=== PATIENT | female | born 1985 | race Caucasian/White ===

== ENCOUNTER 2020-07-06 07:46 | Outpatient (REF) | payer MEDICAID, SELFPAY ==
--- NOTE | 2020-07-06 07:49 | US_ITS ---
EXAMINATION: US ABDOMEN COMPLETE CLINICAL INFORMATION: Abdominal pain. COMPARISON: Ultrasound abdomen 02/14/2018 and ultrasound limited abdomen 09/16/2015. CT abdomen pelvis 09/12/2015. TECHNIQUE: Real-time imaging of the abdominal viscera. FINDINGS: PANCREAS: The head and body the pancreas are normal appearing. Tail obscured by gas. ABDOMINAL AORTA: The proximal, mid, and distal segments are normal in caliber. INFERIOR VENA CAVA: Visualized portions are normal. LIVER: Liver echotexture is increased. The liver is normal in size. The liver contour is normal. No focal hepatic lesion. There is no intrahepatic biliary duct dilatation seen. GALLBLADDER: Surgically absent. COMMON BILE DUCT: Normal in caliber measuring 0.9 cm in diameter. RIGHT KIDNEY: Normal. No hydronephrosis. No renal calculi or focal parenchymal lesions. The kidney measures 10.9 cm in maximum dimension. LEFT KIDNEY: Normal. No hydronephrosis. No renal calculi or focal parenchymal lesions. The kidney measures 10.4 cm in maximum dimension. SPLEEN: Normal. The spleen measures 10.9 cm in maximum dimension. FREE FLUID: None. US/US abdomen complete IMPRESSION: Echogenic liver probably representing fatty infiltration. Postcholecystectomy. Limited visualization of the tail the pancreas.
== END 2020-07-06 07:47 | disposition home or self-care (01) ==
LOC: HO.US 07:46
PROVIDERS: Visit Provider Nurse Practitioner Primary Care
DX: R10.12 Left upper quadrant pain (principal)
CPT/HCPCS: 76700

== ENCOUNTER 2020-07-26 08:44 | Outpatient (REF) | payer MEDICAID, SELFPAY ==
--- NOTE | ~2020-07-26 | CT_ITS ---
EXAMINATION: CT ABDOMEN AND PELVIS WITH CONTRAST CLINICAL INFORMATION: Left-sided abdominal pain COMPARISON: Previous CT of the abdomen and pelvis September 2015 and abdominal ultrasound 07/06/2020 TECHNIQUE: Multidetector volumetric images were obtained from the superior aspect of the liver through the pubic symphysis following administration 85 mL of Omnipaque 350 intravenous contrast. Sagittal and coronal reformatted images were obtained on the technologist's workstation. Oral contrast: Yes This CT examination was performed using dose optimization techniques as appropriate, variously including the following: *Automated exposure control *Adjustment of mA and/or kV according to patient size (this includes techniques or standardized protocols for targeted exams where dose is matched to indication/reason for exam; i.e. extremities or head) *Use of iterative reconstruction technique DLP: 838 mGy-cm FINDINGS: LUNG BASES: The visualized lung bases are unremarkable. LIVER, GALLBLADDER, AND BILIARY TREE: The liver is low in attenuation suggestive of fatty infiltration. The liver is otherwise unremarkable. The gallbladder has been removed. There is no biliary duct dilatation. PANCREAS: Unremarkable. SPLEEN: Unremarkable. ADRENAL GLANDS: Unremarkable. KIDNEYS AND URETERS: The kidneys are normal in size, shape, and attenuation. No hydronephrosis, hydroureter, or calculi seen. No perinephric stranding. BLADDER: Unremarkable. GASTROINTESTINAL TRACT: The small and large bowel are unremarkable. The appendix is identified. ABDOMINAL WALL: There is an umbilical hernia containing fat. LYMPH NODES: Normal. VASCULAR: Unremarkable. PELVIC VISCERA: Unremarkable. OSSEOUS STRUCTURES: Unremarkable. CT/CT abdomen pelvis w con IMPRESSION: Fatty liver. Umbilical hernia containing fat.
[2020-07-26] MEDS: iohexoL 350 MG/ML 100 ML INFUS..BTL IV (12:33)
[2020-07-26] MEDS: Barium Sulfate Oral (Vanilla) 450 ML ORAL.SUSP 900 ML PO (12:34)
== END 2020-07-26 08:45 | disposition home or self-care (01) ==
LOC: HO.CT 08:44
PROVIDERS: Visit Provider Nurse Practitioner Primary Care
DX: R10.12 Left upper quadrant pain (principal); R10.30 Lower abdominal pain, unspecified
CPT/HCPCS: 74177; Q9967

== ENCOUNTER 2021-01-23 14:17 | Emergency (ER) | payer MEDICAID, SELFPAY ==
--- NOTE | ~2021-01-23 | XR_ITS ---
EXAMINATION: XR CHEST CLINICAL INFORMATION: Chest pain COMPARISON: May 05, 2018 TECHNIQUE: Frontal view of the chest was obtained. FINDINGS: No significant abnormality is noted involving the heart, lungs, mediastinum, bony thorax or soft tissues. XR/XR chest 1V IMPRESSION: No acute disease.
[2021-01-23 14:19] VITALS: BP 156/90; PULSE 68; RESP 16; TEMP 36.7; O2SAT 99; BMI 36.0
--- NOTE | 2021-01-23 14:22 | ECG_ITS ---
Test Reason : CHEST PAIN Blood Pressure : / mmHG Vent. Rate : 072 BPM Atrial Rate : 072 BPM P-R Int : 148 ms QRS Dur : 090 ms QT Int : 380 ms P-R-T Axes : 020 054 036 degrees QTc Int : 416 ms Normal sinus rhythm Normal ECG No previous ECGs available Referred By: Generic ED Physician Electronically Signed By:ALEJO YOST
[2021-01-23 14:49] LABS: MANUAL DIFF FLAG NO
[2021-01-23 14:51] LABS: Basophils Percent Auto 0.2 % (0-2); Eosinophils Absolute Auto 0.1 X10*3/uL (0.0-0.4); Eosinophils Percent Auto 0.5 % (0-4); Hematocrit 39.3 % (37-47); Hemoglobin 12.9 g/dl (12.0-16.0); Imm Gran Abs Auto 0.04 X10*3/uL (0.00-0.03); Imm Gran Pct Auto 0.4 % (0.0-0.4); Lymphocytes Absolute Auto 2.9 X10*3/uL (1.2-4.9); Lymphocytes Percent Auto 31.5 % (20-40); Mean Corpuscular HGB Conc 32.8 g/dl (31.0-35.0); Mean Corpuscular Hemoglobin 30.6 pg (27.0-33.0); Mean Corpuscular Volume 93.1 fL (80-98); Mean Platelet Volume 10.9 fL (9.4-12.3); Monocytes Absolute Auto 0.8 X10*3/uL (0.1-1.2); Monocytes Percent Auto 8.3 % (2-11); Neutrophils Absolute Auto 5.4 X10*3/uL (2.0-8.3); Neutrophils Percent Auto 59.1 % (45-73); Platelet Count 174 X10*3/uL (160-400); Red Blood Count 4.22 X10*6/uL (4.20-5.50); Red Cell Distribution Width 12.5 % (11.0-16.0); White Blood Count 9.1 X10*3/uL (4.8-10.8)
[2021-01-23 15:15] LABS: Anion Gap 12 (12-20); Blood Urea Nitrogen 13 mg/dL (9-16); Calcium 9.8 mg/dL (8.4-10.2); Carbon Dioxide 25 mmol/L (22-29); Chloride 106 mmol/L (96-108); Creatinine Clr Calc Pharmacy 117.5; Estimated Glomerular Filt Rate > 60; Glucose Random 101 mg/dL (60-115); Magnesium 2.2 mg/dL (1.6-2.6); Sodium 139 mmol/L (135-145)
[2021-01-23 15:19] LABS: Troponin-I High Sensitivity < 3.5 ng/L (<3.5-17.0)
== END 2021-01-23 22:42 | disposition left against medical advice (07) ==
PROVIDERS: Emergency Provider Emergency Medicine
DX: R07.9 Chest pain, unspecified (principal); F17.210 Nicotine dependence, cigarettes, uncomplicated; Z71.6 Tobacco abuse counseling
CPT/HCPCS: 36415; 71045; 80048; 83735; 84484; 85025; 93005; 99282; 99283

== ENCOUNTER 2021-02-16 09:08 | Emergency (ER) | payer MEDICAID, SELFPAY ==
--- NOTE | ~2021-02-16 | CT_ITS ---
EXAMINATION: CT HEAD WITHOUT CONTRAST CLINICAL INFORMATION: Headaches. COMPARISON: None TECHNIQUE: Contiguous axial imaging was performed from the skull base to vertex without intravenous administration of contrast. This CT examination was performed using dose optimization techniques as appropriate, variously including the following: *Automated exposure control *Adjustment of mA and/or kV according to patient size (this includes techniques or standardized protocols for targeted exams where dose is matched to indication/reason for exam; i.e. extremities or head) *Use of iterative reconstruction technique DLP: 681 mGy-cm FINDINGS: There is no evidence of acute intracranial hemorrhage or territorial infarction. No abnormal mass effect or midline shift is seen. Arthur to white matter differentiation is well preserved. No extra-axial fluid collections are identified. The ventricles are normal in size. There is no abnormal attenuation within the brain parenchyma. The osseous structures and soft tissues are normal. The mastoid air cells and visualized portions of the paranasal sinuses are well aerated. CT/CT head/brain wo con IMPRESSION: No acute intracranial process seen
[2021-02-16 09:17] VITALS: BP 135/85; PULSE 75; RESP 18; TEMP 37; O2SAT 99; BMI 36.8
--- NOTE | 2021-02-16 09:21 | ED_ITS ---
HPI - Headache General Chief Complaint: Headache Stated Complaint: dizziness, eye pain Time Seen by Provider: 02/16/21 09:20 Source: patient and clinical genetics laboratory chief Mode of arrival: ambulatory Limitations: no limitations History of Present Illness MD elicited complaint: headache Onset (ago): week(s) (2) Onset description: gradually Location: right, left and generalized Severity: moderate Quality & Timing: throbbing Exacerbating factors: none Relieving factors: nothing Context: occurred at rest Associated symptoms: lightheadedness Treatments prior to arrival: none Related Data Previous Rx's Medication Instructions Recorded [id number] 1 tab PO Q6H PRN #20 tab 02/16/21 50 mg-325 mg-40 mg tablet cyclobenzaprine 10 mg tablet 10 mg PO TID PRN #14 tab 02/16/21 Allergies Allergy/AdvReac Type Severity Reaction Status Date / Time No Known Allergies Allergy Verified 01/23/21 14:21 Review of Systems Review of Systems: Constitutional : No Fever, No Chills, No Fatigue ENT/Mouth : No sore throat, No Rhinorrhea Eyes: No Eye Pain, No Swelling, No Redness Cardiovascular : No Chest Pain, No SOB, No Dyspnea on Exertion Respiratory : No Cough, No Sputum Gastrointestinal : No Nausea, No Vomiting, No Diarrhea, No abdominal Pain Genitourinary : No Dysuria, No Urinary Frequency, No Hematuria, Musculoskeletal : No joint pain, No Myalgias, No Joint Swelling Skin : No Skin Lesions, No rash Neuro : No Weakness, No Numbness, pos Dizziness, positive Headache Psych : No Anxiety/Panic, No Depression Heme/Lymph: No Bruising, No Bleeding,No Lymphadenopathy Endocrine : No Polyuria, No Polydipsia All other systems reviewed and are negative [facility] Past Medical History Attestation statement: The following information was validated with the patient. Medical History No known health problems Social History Social History Patient Tobacco Use Status: Never used Tobacco Use of substances other than those prescribed or required for medical reasons: No Advance Directives: No Advance Directives Information Provided: No Patient : No Physical Exam Vital Signs: Vital Signs: Last Vital Signs Temp 98.6 F 02/16/21 09:17 Pulse 75 02/16/21 09:17 Resp 18 02/16/21 09:17 BP 135/85 02/16/21 09:17 Pulse Ox 99 02/16/21 09:17 Body Mass Index 36.8 Appearance: Alert. Oriented X3. No acute distress. Eyes: Pupils equal, round and reactive to light. ENT: Pharynx normal. Neck: Normal inspection. Neck supple. CVS: Normal heart rate and rhythm. Pulses normal. Respiratory: No respiratory distress. Breath sounds normal. Abdomen: Soft and nontender. Skin: Skin warm and dry. Normal skin color. Normal skin turgor. Extremities: No lower extremity edema. No calf ttp Neuro: Oriented X 3. No motor deficit. No sensory deficit. steady gait Course Course Course Narrative: negative workup feels better stable for DC MDM - Headache MDM Narrative Medical decision making narrative: 36 yo female otherwise healthy reports 2 weeks of headache and feeling lightheaded, no CP/SOB she has a normal neuro exam. 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 At this time labs, COVID swab, CT head for mass ordered, PO pain control dispo per results and findings. Lab Data Result diagrams: 02/16/21 09:37 02/16/21 09:37 Labs: Lab Results 02/16/21 02/16/21 02/16/21 Range/Units 09:37 09:37 09:37 WBC 7.6 (4.8-10.8) X10*3/uL RBC 3.99 L (4.20-5.50) X10*6/uL Hgb 12.2 (12.0-16.0) g/dl Hct 35.5 L (37-47) % MCV 89.0 (80-98) fL MCH 30.6 (27.0-33.0) pg MCHC 34.4 (31.0-35.0) g/dl RDW 11.9 (11.0-16.0) % Plt Count 164 (160-400) X10*3/uL MPV 10.6 (9.4-12.3) fL Immature Gran % (Auto) 0.7 H (0.0-0.4) % Neut % (Auto) 65.0 (45-73) % Lymph % (Auto) 27.5 (20-40) % Garza % (Auto) 6.4 (2-11) % Eos % (Auto) 0.3 (0-4) % Baso % (Auto) 0.1 (0-2) % Lymph # (Auto) 2.1 (1.2-4.9) X10*3/uL Garza # (Auto) 0.5 (0.1-1.2) X10*3/uL Eos # (Auto) 0.0 (0.0-0.4) X10*3/uL Baso # (Auto) 0.0 (0.0-0.2) X10*3/uL Abs Immat Gran (auto) 0.05 H (0.00-0.03) X10*3/uL Absolute Neuts (auto) 5.0 (2.0-8.3) X10*3/uL Absolute Nucleated RBC 0.000 (0.0-0.012) X10*3/uL Nucleated RBC % (auto) 0.0 (0.0-0.2) /100WBC Sodium 137 (135-145) mmol/L Potassium 4.0 (3.3-5.1) mmol/L Chloride 105 (96-108) mmol/L Carbon Dioxide 26 (22-29) mmol/L Anion Gap 10 L (12-20) BUN 11 (9-16) mg/dL Creatinine 0.79 (0.5-1.4) mg/dL Estim Creat Clear Calc 124.9 Estimated GFR > 60 Random Glucose 111 (60-115) mg/dL Calcium 9.1 D (8.4-10.2) mg/dL COVID-19 (BALTAZAR) Negative (Negative) COVID-19 Clin Com See Note Discharge Plan Discharge Clinical Impression: Tension headache Patient Disposition: Home, Self-Care Instructions: Tension Headache (ED) Additional Instructions: return to ED for any worsening symptoms or concerns Prescriptions: New cyclobenzaprine 10 mg tablet 10 mg PO TID PRN (Reason: muscle spasm) Qty: 14 RF: 0 [id number]-[id number] 50-325-40 mg tablet 1 tab PO Q6H PRN (Reason: pain) Qty: 20 RF: 0 Referrals: [facility] [Primary Care Provider] - 2 days (if not better) Print Language: Chinese
--- NOTE | 2021-02-16 09:27 | PC.NURSE ---
Pt alert and oriented, vss, Pt states she has been having headache and dizziness for about two weeks now. She describes the pain as pressure on her head. She states that she almost passed out this morning when she stood up. Pt denies sob/chest pain. No fever/runny or stuffy nose. No other symptoms reported. Pt reports she is not vaccinated and is unsure if she will get vaccinated.
[2021-02-16 09:43] LABS: MANUAL DIFF FLAG NO
[2021-02-16 09:45] LABS: Basophils Percent Auto 0.1 % (0-2); Eosinophils Percent Auto 0.3 % (0-4); Hematocrit 35.5 % (37-47); Hemoglobin 12.2 g/dl (12.0-16.0); Imm Gran Abs Auto 0.05 X10*3/uL (0.00-0.03); Imm Gran Pct Auto 0.7 % (0.0-0.4); Lymphocytes Absolute Auto 2.1 X10*3/uL (1.2-4.9); Lymphocytes Percent Auto 27.5 % (20-40); Mean Corpuscular HGB Conc 34.4 g/dl (31.0-35.0); Mean Corpuscular Hemoglobin 30.6 pg (27.0-33.0); Mean Platelet Volume 10.6 fL (9.4-12.3); Monocytes Absolute Auto 0.5 X10*3/uL (0.1-1.2); Monocytes Percent Auto 6.4 % (2-11); Platelet Count 164 X10*3/uL (160-400); Red Blood Count 3.99 X10*6/uL (4.20-5.50); Red Cell Distribution Width 11.9 % (11.0-16.0); White Blood Count 7.6 X10*3/uL (4.8-10.8)
[2021-02-16 10:01] LABS: COVID-19 Test Negative (Negative)
[2021-02-16 10:04] LABS: Anion Gap 10 (12-20); Blood Urea Nitrogen 11 mg/dL (9-16); Calcium 9.1 mg/dL (8.4-10.2); Carbon Dioxide 26 mmol/L (22-29); Chloride 105 mmol/L (96-108); Creatinine Clr Calc Pharmacy 124.9; Estimated Glomerular Filt Rate > 60; Glucose Random 111 mg/dL (60-115); Sodium 137 mmol/L (135-145)
== END 2021-02-16 11:10 | disposition home or self-care (01) ==
PROVIDERS: Emergency Provider Emergency Medicine
DX: G44.209 Tension-type headache, unspecified, not intractable (principal); R42 Dizziness and giddiness; Z20.822 Contact with and (suspected) exposure to COVID-19; Z79.899 Other long term (current) drug therapy
CPT/HCPCS: 36415; 70450; 80048; 85025; 87635; 99283; 99284

== ENCOUNTER 2022-09-06 14:21 | Outpatient (REF) | payer MEDICAID, SELFPAY | END 2022-09-06 14:22 | disposition home or self-care (01) | LOC: HO.SH 14:21 | PROVIDERS: Visit Provider General Practice | DX: Z01.118 Encounter for examination of ears and hearing with other abnormal findings (principal); H91.93 Unspecified hearing loss, bilateral; H93.13 Tinnitus, bilateral | CPT/HCPCS: 92557; 92567; 92587; 92625 ==

== ENCOUNTER → 2022-10-10 11:26 | Outpatient (BNVA) | payer MEDICAID, SELFPAY | PROVIDERS: Visit Provider Physician Assistant | DX: K21.9 Gastro-esophageal reflux disease without esophagitis (principal); R13.10 Dysphagia, unspecified | CPT/HCPCS: 99202 ==

== ENCOUNTER 2022-10-12 09:26 | Outpatient (REF) | payer MEDICAID, SELFPAY ==
--- NOTE | ~2022-10-12 | US_ITS ---
EXAMINATION: US ABDOMEN COMPLETE CLINICAL INFORMATION: Left upper quadrant pain. COMPARISON: CT abdomen and pelvis 07/26/2020. Ultrasound abdomen complete 07/06/2020 and 02/14/2018. TECHNIQUE: Real-time imaging of the abdominal viscera. FINDINGS: PANCREAS: Normal. ABDOMINAL AORTA: The proximal, mid, and distal segments are normal in caliber. INFERIOR VENA CAVA: Visualized portions are normal. LIVER: The liver is normal in size. The liver contour is normal. There is diffuse increased liver parenchymal echogenicity, consistent with hepatic steatosis. No focal hepatic lesion. There is no intrahepatic biliary duct dilatation seen. GALLBLADDER: Surgically absent. COMMON BILE DUCT: Normal in caliber measuring 0.7 cm in diameter. RIGHT KIDNEY: Normal. No hydronephrosis. No renal calculi or focal parenchymal lesions. The kidney measures 10.5 cm in maximum dimension. LEFT KIDNEY: Normal. No hydronephrosis. No renal calculi or focal parenchymal lesions. The kidney measures 9.3 cm in maximum dimension. SPLEEN: Normal. The spleen measures 11.9 cm in maximum dimension. FREE FLUID: None. US/US abdomen complete IMPRESSION: Hepatic steatosis. No explanation for left upper quadrant abdominal pain.
== END 2022-10-12 09:27 | disposition home or self-care (01) ==
LOC: HO.US 09:26
PROVIDERS: Visit Provider General Practice
DX: R10.12 Left upper quadrant pain (principal); K76.0 Fatty (change of) liver, not elsewhere classified
CPT/HCPCS: 76700

== ENCOUNTER → 2022-10-24 11:54 | Outpatient (BNVA) | payer MEDICAID, SELFPAY | PROVIDERS: Visit Provider Physician Assistant | DX: Z11.0 Encounter for screening for intestinal infectious diseases (principal) | CPT/HCPCS: 99211 ==

== ENCOUNTER 2022-10-29 12:25 | Outpatient (REF) | payer MEDICAID, SELFPAY ==
[2022-11-01 11:16] LABS: H Pylori Breath Test Negative (Negative)
== END 2022-10-29 12:26 | disposition home or self-care (01) ==
LOC: HO.LNP 12:25
PROVIDERS: Visit Provider Physician Assistant
DX: A04.8 Other specified bacterial intestinal infections (principal)
CPT/HCPCS: 83013

== ENCOUNTER 2023-01-03 11:30 | Outpatient (AMB) | payer MEDICAID, SELFPAY ==
--- NOTE | 2023-01-03 11:44 | A.OFFVIS_ITS ---
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 She recently got screen for STIs with blood work at [facility]. she was offered the screening at the last visit there so she took it she is not worried but she wants testing done with her pelvic exam. Her last period was December 05 so she is feels like she is due any day now. She is here with her 7-year-old son. she had her tubes tied for control [facility] Medical History No known health problems Surgical History Hx of cholecystectomy Social History Household Members: Family Household Members Other:: kids-3 Alcohol intake: current Alcohol intake frequency: holidays/special occasions only Patient Tobacco Use Status: Current someday Tobacco user Female Reproductive History Menstrual Duration of menses: 3-5 days Date of last menstrual period: 12/05/22 control method: none Total pregnancies: 3 Full term: 3 Date of last pap smear: 07/16/19 History of abnormal pap smear: Yes History of STI: No Physical Exam Vital Signs: Last Vital Signs BP 128/80 01/03/23 11:55 BMI result Body Mass Index 36.9 Const General: healthy appearing, comfortable, no acute distress, well developed and alert Nutritional Appearance: average body habitus Orientation/consciousness: patient oriented x3 Limitations: no limitations HEENT Head: Yes normocephalic Neck Neck: Yes normal visual inspection Chest Chest palpation & inspection: normal inspection of the chest Breast/axilla inspection: normal inspection of the breasts and normal inspection of the axillae Breast/axilla palpation: normal palpation of the breasts and normal palpation of the axillae Resp Effort & Inspection: normal respiratory effort GI Inspection: Yes normal to inspection, No Abdominal wall edema and No distended Palpation (GI): Soft to palpation and nontender General: Yes bladder normal to palpation External Female Exam: normal external appearance and normal appearance of the urethra Speculum Exam - Vagina: normal appearance of the vagina, normal palpation and normal vaginal discharge Speculum Exam - Cervix: normal appearance of the cervix, normal palpation and nontender Bimanual exam- vagina & uterus: normal bimanual exam, normal palpation, uterine size normal, bladder normal to palpation, consistency normal, normal palpation, uterine mobility normal, uterine shape normal, No Cervical tenderness present, non-tender and no cervical motion tenderness Bimanual Exam- Adnexa, other: normal adnexae, no masses, normal and No adnexal tenderness Neuro General: patient oriented x3 Assessment & Plan Assessment & Plan (1) Hx of abnormal cervical Pap smear: Comment: last pap neg w pos hpv Code(s): Z87.42 - Personal history of other diseases of the female genital tract (2) Well woman exam with routine gynecological exam: Code(s): Z01.419 - Encounter for gynecological examination (general) (routine) without abnormal findings (3) Obesity, Class II, BMI 35-39.9: Code(s): E66.9 - Obesity, unspecified (4) Fatty liver: Code(s): K76.0 - Fatty (change of) liver, not elsewhere classified (5) Breast cancer screening: Code(s): Z12.39 - Encounter for other screening for malignant neoplasm of breast (6) Screen for sexually transmitted diseases: Code(s): Z11.3 - Encounter for screening for infections with a predominantly sexual mode of transmission Plan -----Discussed in this visit the following: healthy balanced diet, regular and consistent exercise, getting recommended health screens, doing the best she can for her particular health concerns, kegel exercises, pap smear screening and followup recommendations, mammography screening and SBE, normal changes in cycles in her life stage--- .Discussed in general terms the challenges of obesity and challenges for her health and efforts she is engaging in to manage this including dietary changes water intake attention to sleep inclusion of a regular exercise have it and dealing with the may need stressors of life that can contribute to obesity in general. Encouraged her to continue in all have her best efforts. she said that she has been told to avoid fatty foods she has fatty liver. She loves fast food like pizza so it is very hard and she does not like vegetables. I did offer her a referral to the weight management program and told her it was pretty strict but she said she would be interested as she thinks she needs something strict to follow to help her. I gave her the brochure in Hebrew and I am placing referral. Exam was completely within normal limits and her cervix appeared pink and healthy with no abnormal discharge Pap and testing for GC chlamydia trichomoniasis Gardnerella and Rachelle was done. We will see her in 1 year and I wished her luck with weight loss. Orders: Orders Bacterial Vaginosis Panel Today E66.9 - Obesity, unspecified, Z01.419 - Encounter for gynecological examination (general) (routine) without abnormal findings CT NG by PCR Today E66.9 - Obesity, unspecified, Z01.419 - Encounter for gynecological examination (general) (routine) without abnormal findings Pap Smear Today Z01.419 - Encounter for gynecological examination (general) (routine) without abnormal findings Referrals Medical Weight Management Referral E66.9 - Obesity, unspecified Coding Level of Care Code Est Pt Prev Care [id number](14020) Diagnoses Hx of abnormal cervical Pap smear Z87.42 Well woman exam with routine gynecological exam Z01.419 Obesity, Class II, BMI 35-39.9 E66.9 Fatty liver K76.0 Breast cancer screening Z12.39 Screen for sexually transmitted diseases Z11.3
[2023-01-03 11:55] VITALS: BP 128/80; BMI 36.9
== END 2023-01-03 13:59 | disposition home or self-care (01) ==
LOC: HO.HWS 11:30
PROVIDERS: Visit Provider Advanced Practice Midwife
DX: Z87.42 Personal history of other diseases of the female genital tract (principal); Z01.419 Encounter for gynecological examination (general) (routine) without abnormal findings; E66.9 Obesity, unspecified; K76.0 Fatty (change of) liver, not elsewhere classified; Z12.39 Encounter for other screening for malignant neoplasm of breast; Z11.3 Encounter for screening for infections with a predominantly sexual mode of transmission
CPT/HCPCS: 99395

== ENCOUNTER 2023-01-03 11:30 | Outpatient (REF) | payer MEDICAID, SELFPAY ==
[2023-01-04 09:19] LABS: CT PCR NOT DETECTED (Not Detect.); NG PCR NOT DETECTED (Not Detect.)
[2023-01-04 09:38] LABS: BV Int Neg Control Negative (Negative); BV Int Pos Control Positive (Positive)
[2023-01-11 02:14] LABS: HPV mRNA E6/E7 rflx Not Detected (Not Detected)
== END 2023-01-03 11:31 | disposition home or self-care (01) ==
LOC: HO.LNP 11:30
PROVIDERS: Visit Provider Advanced Practice Midwife
DX: Z01.419 Encounter for gynecological examination (general) (routine) without abnormal findings (principal); E66.9 Obesity, unspecified; K76.0 Fatty (change of) liver, not elsewhere classified; Z11.3 Encounter for screening for infections with a predominantly sexual mode of transmission; Z87.42 Personal history of other diseases of the female genital tract; Z79.899 Other long term (current) drug therapy
CPT/HCPCS: 0353U; 87480; 87510; 87624; 87660; 88142; 99396

== ENCOUNTER 2023-01-16 13:33 | Emergency (ER) | payer MEDICAID, SELFPAY ==
[2023-01-16 13:37] VITALS: BP 135/94; PULSE 77; RESP 18; TEMP 36.6; O2SAT 99; BMI 36.5
--- NOTE | 2023-01-16 13:37 | ED_ITS ---
HPI - General Adult General Chief complaint: General Medical Stated complaint: Tingling Sensation Head Legs & Hands Time Seen by Provider: 01/16/23 17:35 Source: patient Mode of arrival: ambulatory Limitations: no limitations History of Present Illness HPI narrative: Patient with no significant past medical history been complaining of tingling sensation in both upper and lower extremity for last 4 days localized to distal upper and lower extremities no weakness no history of same in the past no neck pain no back pain no history of multiple sclerosis Related Data Home Medications Medication Instructions Recorded Confirmed omeprazole 20 mg capsule,delayed 20 mg PO BID 10/10/22 01/03/23 release Previous Rx's Medication Instructions Recorded sucralfate 1 gram tablet 1 g PO QIDACHS 21 days #90 tabs 10/10/22 gabapentin 100 mg capsule 100 mg PO BID #20 caps 01/16/23 Allergies Allergy/AdvReac Type Severity Reaction Status Date / Time No Known Allergies Allergy Verified 01/16/23 13:37 Review of Systems Review of Systems: Yes all other systems are reviewed and are negative PMFSH Past Medical History Medical History No known health problems Surgical History Hx of cholecystectomy Social History Social History Household Members: Family Household Members Other:: kids-3 Alcohol intake: current Alcohol intake frequency: holidays/special occasions only Patient Tobacco Use Status: Current someday Tobacco user Smoked in Last 30 Days: No Use of substances other than those prescribed or required for medical reasons: No Advance Directives: No Advance Directives Information Provided: No Patient : No Physical Exam ED Vital Signs: Vital Signs - 24 hr 01/16/23 13:37 01/16/23 17:41 01/16/23 17:45 Temperature 97.9 F 98.2 F Pulse Rate 77 65 67 Respiratory Rate 18 16 Blood Pressure 135/94 H 119/83 120/78 Pulse Oximetry 99 100 Oxygen Delivery Method Room Air Room Air 01/16/23 17:47 01/16/23 17:48 01/16/23 19:08 Temperature 98.0 F Pulse Rate 75 85 Respiratory Rate Blood Pressure 115/81 116/85 126/84 Pulse Oximetry Oxygen Delivery Method Room Air BMI result Body Mass Index 36.5 Appearance: Alert. Oriented X3. No acute distress. Eyes: PERRLA, No Nystagmus ENT: Pharynx normal. Oral Mucosa moist Neck: Normal inspection. Neck supple. No midline tenderness CVS: Normal heart rate and rhythm. Pulses normal. Respiratory: No respiratory distress. Equal air entry bilateral, Abdomen: Soft and nontender. Bowel sounds are present, Skin: Skin warm and dry. Normal skin color. Normal skin turgor. Extremities: No lower extremity edema. No calf tenderness Neuro: Oriented X 3. No motor deficit. No sensory deficit.No cerebellar signs , cranial nerves II-XII intact deep tendon reflexes normal normal gait Course Course Course Narrative: RME: 38yo F w/no sig PMHx c/o nausea & vomiting on Saturday now w/tingling sensation in head, b/l UE & LE x5 days. Also reports feeling lightheaded, photophobia, blurry vision & headache. Denies vomiting at present. denies taking anything for SLAUGHTER. Denies taking AC Ambulating w/steady gait EKG, Labs, UA, U-preg ordered Full HPI, ROS and PE to be performed by primary ED provider. Medications Administered Discontinued Medications Generic Name Dose Route Start Last Admin Trade Name Freq PRN Reason Stop Dose Admin Gabapentin 100 mg 01/16/23 18:23 01/16/23 18:30 Gabapentin 100 Mg Capsule PO 01/16/23 18:24 100 mg ONCE ONE Administration Medical Decision Making Medical Decision Making [facility] Narrative: Patient with peripheral neuropathy etiology not very clear labs are stable patient advised to follow-up with neurologist Lab Data [facility] Lab Attestation statement: I reviewed the patient's lab results. 01/16/23 13:52 01/16/23 13:52 Labs: Lab Results 01/16/23 01/16/23 01/16/23 Range/Units 13:52 13:52 13:52 WBC 8.4 (4.8-10.8) X10*3/uL RBC 4.43 (4.20-5.50) X10*6/uL Hgb 13.2 (12.0-16.0) g/dl Hct 39.3 (37.0-47.0) % MCV 88.7 (80.0-98.0) fL MCH 29.8 (27.0-33.0) pg MCHC 33.6 (31.0-35.0) g/dl RDW 11.9 (11.0-16.0) % Plt Count 180 (160-400) X10*3/uL MPV 10.4 (9.4-12.3) fL Immature Gran % (Auto) 0.4 (0.0-0.4) % Neut % (Auto) 65.5 (45-73) % Lymph % (Auto) 27.5 (20-40) % [place] % (Auto) 6.2 (2-11) % Eos % (Auto) 0.2 (0-4) % Baso % (Auto) 0.2 (0-2) % Lymph # (Auto) 2.3 (1.2-4.9) X10*3/uL [place] # (Auto) 0.5 (0.1-1.2) X10*3/uL Eos # (Auto) 0.0 (0.0-0.4) X10*3/uL Baso # (Auto) 0.0 (0.0-0.2) X10*3/uL Abs Immat Gran (auto) 0.03 (0.00-0.03) X10*3/uL Absolute Neuts (auto) 5.5 (2.0-8.3) x10*3/uL Absolute Nucleated RBC 0.000 (0.0-0.012) X10*3/uL Nucleated RBC % (auto) 0.0 (0.0-0.2) /100WBC PT 11.8 (11.1-13.3) SEC INR 1.0 (0.9-1.1) Sodium 140 (135-145) mmol/L Potassium 4.2 (3.3-5.1) mmol/L Chloride 105 (96-108) mmol/L Carbon Dioxide 29 (22-29) mmol/L Anion Gap 10 L (12-20) BUN 9 (9-16) mg/dL Creatinine 0.82 (0.5-1.4) mg/dL Estim Creat Clear Calc 117.4 Estimated GFR > 60 Random Glucose 92 (60-115) mg/dL Calcium 9.8 D (8.4-10.2) mg/dL Magnesium 2.0 (1.6-2.6) mg/dL Total Bilirubin 0.5 (0.0-1.0) mg/dL Direct Bilirubin 0.1 (0.0-0.5) mg/dL AST 15 (5-31) U/L ALT 13 (0-31) U/L Alkaline Phosphatase 71 (39-117) U/L Total Protein 8.2 H (6.5-8.0) g/dL Albumin 4.5 (3.5-5.0) g/dL TSH 0.57 (0.32-4.0) uIU/mL Urine Test (NEGATIVE) 01/16/23 Range/Units 16:28 WBC (4.8-10.8) X10*3/uL RBC (4.20-5.50) X10*6/uL Hgb (12.0-16.0) g/dl Hct (37.0-47.0) % MCV (80.0-98.0) fL MCH (27.0-33.0) pg MCHC (31.0-35.0) g/dl RDW (11.0-16.0) % Plt Count (160-400) X10*3/uL MPV (9.4-12.3) fL Immature Gran % (Auto) (0.0-0.4) % Neut % (Auto) (45-73) % Lymph % (Auto) (20-40) % [place] % (Auto) (2-11) % Eos % (Auto) (0-4) % Baso % (Auto) (0-2) % Lymph # (Auto) (1.2-4.9) X10*3/uL [place] # (Auto) (0.1-1.2) X10*3/uL Eos # (Auto) (0.0-0.4) X10*3/uL Baso # (Auto) (0.0-0.2) X10*3/uL Abs Immat Gran (auto) (0.00-0.03) X10*3/uL Absolute Neuts (auto) (2.0-8.3) x10*3/uL Absolute Nucleated RBC (0.0-0.012) X10*3/uL Nucleated RBC % (auto) (0.0-0.2) /100WBC PT (11.1-13.3) SEC INR (0.9-1.1) Sodium (135-145) mmol/L Potassium (3.3-5.1) mmol/L Chloride (96-108) mmol/L Carbon Dioxide (22-29) mmol/L Anion Gap (12-20) BUN (9-16) mg/dL Creatinine (0.5-1.4) mg/dL Estim Creat Clear Calc Estimated GFR Random Glucose (60-115) mg/dL Calcium (8.4-10.2) mg/dL Magnesium (1.6-2.6) mg/dL Total Bilirubin (0.0-1.0) mg/dL Direct Bilirubin (0.0-0.5) mg/dL AST (5-31) U/L ALT (0-31) U/L Alkaline Phosphatase (39-117) U/L Total Protein (6.5-8.0) g/dL Albumin (3.5-5.0) g/dL TSH (0.32-4.0) uIU/mL Urine Test NEGATIVE (NEGATIVE) Discharge Plan Discharge Clinical Impression: Peripheral neuropathy Patient Disposition: Home, Self-Care Instructions: Peripheral Neuropathy (ED) Additional Instructions: Cause of your tingling sensations not very clear Take medication as prescribed Follow-up with neurologist/PCP Prescriptions: New gabapentin 100 mg capsule 100 mg PO BID Qty: 20 0RF No Action omeprazole 20 mg capsule,delayed release(DR/EC) 20 mg PO BID sucralfate 1 gram tablet 1 g PO QIDACHS 21 Days Qty: 90 0RF Referrals: Sarai Charles MD [Physician] - 2 weeks Interventions: ED Discharge Assessment Last Done: 01/16/23 19:21 Discharge Date/Time: 01/16/23 19:21
--- NOTE | 2023-01-16 13:39 | ECG_ITS ---
Test Reason : TINGLING Blood Pressure : / mmHG Vent. Rate : 064 BPM Atrial Rate : 064 BPM P-R Int : 158 ms QRS Dur : 086 ms QT Int : 372 ms P-R-T Axes : 053 038 031 degrees QTc Int : 383 ms Normal sinus rhythm Normal ECG When compared with ECG of 23-JAN-2021 14:25, No significant change was found Referred By: Missy Reyez Electronically Signed By:ALEJO YOST
[2023-01-16 13:59] LABS: MANUAL DIFF FLAG NO
[2023-01-16 14:01] LABS: Basophils Percent Auto 0.2 % (0-2); Eosinophils Percent Auto 0.2 % (0-4); Hematocrit 39.3 % (37.0-47.0); Hemoglobin 13.2 g/dl (12.0-16.0); Imm Gran Abs Auto 0.03 X10*3/uL (0.00-0.03); Imm Gran Pct Auto 0.4 % (0.0-0.4); Lymphocytes Absolute Auto 2.3 X10*3/uL (1.2-4.9); Lymphocytes Percent Auto 27.5 % (20-40); Mean Corpuscular HGB Conc 33.6 g/dl (31.0-35.0); Mean Corpuscular Hemoglobin 29.8 pg (27.0-33.0); Mean Corpuscular Volume 88.7 fL (80.0-98.0); Mean Platelet Volume 10.4 fL (9.4-12.3); Monocytes Absolute Auto 0.5 X10*3/uL (0.1-1.2); Monocytes Percent Auto 6.2 % (2-11); Neutrophils Absolute Auto 5.5 x10*3/uL (2.0-8.3); Neutrophils Percent Auto 65.5 % (45-73); Platelet Count 180 X10*3/uL (160-400); Red Blood Count 4.43 X10*6/uL (4.20-5.50); Red Cell Distribution Width 11.9 % (11.0-16.0); White Blood Count 8.4 X10*3/uL (4.8-10.8)
[2023-01-16 14:07] LABS: Prothrombin Time 11.8 SEC (11.1-13.3)
[2023-01-16 14:14] LABS: Alanine Aminotransferase 13 U/L (0-31); Albumin Level 4.5 g/dL (3.5-5.0); Alkaline Phosphatase 71 U/L (39-117); Anion Gap 10 (12-20); Aspartate Amino Transferase 15 U/L (5-31); Bilirubin Direct 0.1 mg/dL (0.0-0.5); Bilirubin Total 0.5 mg/dL (0.0-1.0); Blood Urea Nitrogen 9 mg/dL (9-16); Calcium 9.8 mg/dL (8.4-10.2); Carbon Dioxide 29 mmol/L (22-29); Chloride 105 mmol/L (96-108); Creatinine Clr Calc Pharmacy 117.4; Estimated Glomerular Filt Rate > 60; Glucose Random 92 mg/dL (60-115); Potassium 4.2 mmol/L (3.3-5.1); Sodium 140 mmol/L (135-145); Total Protein 8.2 g/dL (6.5-8.0)
--- NOTE | 2023-01-16 16:33 | MHC.EDTECH ---
PATIENT URINE SAMPLE COLLECTED AND SENT TO LAB .
[2023-01-16 16:45] LABS: UPreg QC Valid YES; Urine Pregnancy NEGATIVE (NEGATIVE)
[2023-01-16 17:41] VITALS: BP 119/83; PULSE 65; RESP 16; TEMP 36.8; O2SAT 100
[2023-01-16 17:45] VITALS: BP 120/78; PULSE 67
[2023-01-16 17:47] VITALS: BP 115/81; PULSE 75
[2023-01-16 17:48] VITALS: BP 116/85; PULSE 85
--- NOTE | 2023-01-16 17:50 | PC.NURSE ---
loading unit operator seating&ox3, vss, nsr on the cafeteria monitor. pt c/o generalized weakness/tingling/cramping sensation in bilateral LE, bilateral UE, and back of head that radiates towards the front of her skull. pt verbalizing that she feels like there are tiny ants inside her brain. negative cleaner bedside. pt resting comfortably in no apparent distress. call be placed within reach. will continue to monitor.
--- NOTE | 2023-01-16 18:07 | PC.NURSE ---
anesthesiology crna sia redding/rn at bedside during eval. pt reports tingling to all extremities and that it has felt like she has ants in her brain (describing it as a tinlging-like sensation). denies numbness. no focal deficits. aox4. calm, cooperative. STORM equally. walked to room well. denies hx neuropathy/DM. stated ate pork this weekend and sx started shortly after. VSS. NSR on monitor.
[2023-01-16] MEDS: Gabapentin 100 MG CAPSULE PO (18:30)
--- NOTE | 2023-01-16 18:31 | PC.NURSE ---
medication administered per provider order.
[2023-01-16 19:04] LABS: Thyroid Stimulating Hormone 0.57 uIU/mL (0.32-4.0)
[2023-01-16 19:08] VITALS: BP 126/84; TEMP 36.7
== END 2023-01-16 19:21 | disposition home or self-care (01) ==
PROVIDERS: Physician Assistant; Emergency Provider Internal Medicine
DX: G62.9 Polyneuropathy, unspecified (principal); R11.2 Nausea with vomiting, unspecified; R20.0 Anesthesia of skin; R51.9 Headache, unspecified; R42 Dizziness and giddiness; F17.210 Nicotine dependence, cigarettes, uncomplicated; Z71.6 Tobacco abuse counseling; Z79.899 Other long term (current) drug therapy
CPT/HCPCS: 36415; 80048; 80076; 81025; 83735; 84443; 85025; 85610; 93005; 99283; 99285

== ENCOUNTER 2023-01-21 15:38 | Outpatient (REF) | payer MEDICAID, SELFPAY ==
[2023-01-21 16:49] LABS: MANUAL DIFF FLAG NO
[2023-01-21 17:08] LABS: Basophils Percent Auto 0.2 % (0-2); Eosinophils Percent Auto 0.4 % (0-4); Hematocrit 35.1 % (37.0-47.0); Hemoglobin 11.6 g/dl (12.0-16.0); Imm Gran Abs Auto 0.03 X10*3/uL (0.00-0.03); Imm Gran Pct Auto 0.4 % (0.0-0.4); Lymphocytes Absolute Auto 2.7 X10*3/uL (1.2-4.9); Lymphocytes Percent Auto 32.6 % (20-40); Mean Corpuscular Hemoglobin 29.9 pg (27.0-33.0); Mean Corpuscular Volume 90.5 fL (80.0-98.0); Mean Platelet Volume 11.4 fL (9.4-12.3); Monocytes Absolute Auto 0.7 X10*3/uL (0.1-1.2); Monocytes Percent Auto 8.6 % (2-11); Neutrophils Absolute Auto 4.8 x10*3/uL (2.0-8.3); Neutrophils Percent Auto 57.8 % (45-73); Platelet Count 163 X10*3/uL (160-400); Red Blood Count 3.88 X10*6/uL (4.20-5.50); Red Cell Distribution Width 12.1 % (11.0-16.0); White Blood Count 8.3 X10*3/uL (4.8-10.8)
[2023-01-21 17:29] LABS: Estimated Average Glucose 94 mg/dL; Hemoglobin A1c % 4.9 % (<6.0)
[2023-01-21 17:53] LABS: Iron 57 mcg/dL (30-160); Percent Iron Saturation 19 % (15-50); Total Iron Binding Capacity 303 mcg/dL (228-428); Unsaturated Iron Binding 246 ug/dL
[2023-01-21 17:54] LABS: TSH reflex Free T4 0.77 uIU/mL (0.32-4.0)
[2023-01-22 16:25] LABS: Lactate Dehydrogenase 175 U/L (122-220)
[2023-01-22 18:36] LABS: Vitamin B12 573 pg/mL (200-900)
[2023-01-23 04:10] LABS: Syphilis Screen Nonreactive (Nonreactive)
[2023-01-23 16:32] LABS: Haptoglobin 141 mg/dL (43-212)
== END 2023-01-21 15:39 | disposition home or self-care (01) ==
LOC: HO.HHCL 15:38
PROVIDERS: Visit Provider Student in an Organized Health Care Education/Training Program
DX: D50.9 Iron deficiency anemia, unspecified (principal); R42 Dizziness and giddiness
CPT/HCPCS: 36415; 82607; 82746; 83010; 83036; 83540; 83615; 84443; 85025; 86780

== ENCOUNTER 2023-01-23 08:54 | Outpatient (REF) | payer MEDICAID, SELFPAY ==
--- NOTE | ~2023-01-23 | FL_ITS ---
EXAMINATION: FL BARIUM SWALLOW CLINICAL INFORMATION: Gastroesophageal reflux disease without esophagitis. COMPARISON: None available. TECHNIQUE: Barium swallow examination is performed using fluoroscopic evaluation in addition to multiple fluoroscopic spot views. The patient is imaged both upright and prone and using both thick and thin sulfate along with half-inch diameter barium tablet. Fluoroscopy time: 1.1 minutes. DAP: 3.784 Gycm2. Images: 28. FINDINGS: There is normal apposition of the vocal cords while saying E. There is normal elevation of the soft palate while saying candy. No nasopharyngeal reflux identified. No tracheal aspiration seen. No Zenker's diverticulum. No cricopharyngeal hypertrophy. There is normal esophageal motility. No hiatal hernia present. No gastroesophageal reflux elicited including with water siphon test. No stricture identified. FL/FL barium swallow IMPRESSION: Normal esophagram.
== END 2023-01-23 08:55 | disposition home or self-care (01) ==
LOC: HO.XRAY 08:54
PROVIDERS: Visit Provider Physician Assistant
DX: R13.10 Dysphagia, unspecified (principal); K21.9 Gastro-esophageal reflux disease without esophagitis
CPT/HCPCS: 74220

== ENCOUNTER → 2023-01-23 08:56 | Outpatient (BNV) | payer MEDICAID, SELFPAY | PROVIDERS: Visit Provider Radiology Diagnostic Radiology | DX: K21.9 Gastro-esophageal reflux disease without esophagitis (principal) | CPT/HCPCS: 74221 ==

== ENCOUNTER 2023-02-14 06:02 | Emergency (ER) | payer OTHER, SELFPAY ==
--- NOTE | ~2023-02-14 | CT_ITS ---
EXAMINATION: CT HEAD WITHOUT CONTRAST CLINICAL INFORMATION: Headache. COMPARISON: 02/16/2021 TECHNIQUE: Contiguous axial imaging was performed from the skull base to vertex without intravenous administration of contrast. This CT examination was performed using dose optimization techniques as appropriate, variously including the following: *Automated exposure control *Adjustment of mA and/or kV according to patient size (this includes techniques or standardized protocols for targeted exams where dose is matched to indication/reason for exam; i.e. extremities or head) *Use of iterative reconstruction technique DLP: 652 mGy-cm FINDINGS: The lateral, third and fourth ventricles are normally outlined. The cortical sulci and basal cisterns are normally outlined as well. There is no acute territorial defect, hemorrhage or midline shift. The extra-axial spaces are unremarkable. Calvarium: Intact. There are apparent soft tissue foreign bodies/calcification right high parietal and left frontal scalp similar to previous. Maxillofacial sinuses and mastoids: Clear as visualized. CT/CT head/brain wo IV con IMPRESSION: No acute intracranial pathology.
[2023-02-14 06:09] VITALS: BP 156/95; PULSE 73; RESP 18; TEMP 36.9; O2SAT 100; BMI 34.5
--- NOTE | 2023-02-14 06:52 | ED.HA ---
HPI - Headache General Chief Complaint: Headache Stated Complaint: dizziness, migraine Time Seen by Provider: 02/14/23 06:37 Source: patient Mode of arrival: ambulatory Limitations: no limitations History of Present Illness HPI Narrative: 38-year-old female with PMHx of GERD, obesity, & tension SLAUGHTER presenting to the ED today with a complaint of headache and dizziness x2.5 mos. Reports 10/10 pain, located occipitally with radiation to bilateral temples. Describes it as a pulsatile sensation. Admits to intermittent blurred vision, photophobia, dizziness. Dizziness is worse with ambulation. Denies syncope, falls, or trauma. Denies rash, fever, chills, jaw claudication, neck or back pain, nausea/vomiting, chest pain, palpitations, urinary symptoms, constipation/ diarrhea. Patient endorses adequate po intake. does not take any medications. Related Data Home Medications Medication Instructions Recorded Confirmed omeprazole 20 mg capsule,delayed 20 mg PO BID 10/10/22 01/03/23 release Previous Rx's Medication Instructions Recorded sucralfate 1 gram tablet 1 g PO QIDACHS 21 days #90 tabs 10/10/22 gabapentin 100 mg capsule 100 mg PO BID #20 caps 01/16/23 ketorolac 10 mg tablet 10 mg PO Q8H 5 days #15 tabs 02/14/23 meclizine 25 mg tablet 25 mg PO DAILY PRN dizziness #10 02/14/23 tabs Allergies Allergy/AdvReac Type Severity Reaction Status Date / Time No Known Allergies Allergy Verified 01/16/23 13:37 Review of Systems Review of Systems: Constitutional: No fever, No chills, No fatigue, No malaise ENT/Mouth: No ear pain, No hearing loss, No nasal congestion, No sinus pain, No rhinorrhea, No sore throat Eyes: No eye pain, No swelling, No redness, + blurred vision, + photophobia Cardio: No chest pain, No palpitations, No dyspnea on exertion, No orthopnea, No edema Respiratory: No SOB, No cough, No sputum, No wheezing, No dyspnea, No hemoptysis GI: No nausea, No vomiting, No hematemesis, No abdominal pain, No diarrhea, No constipation, No hematochezia, No melena : No irregular bleeding, No dysuria, No frequency, No urgency, No hesitancy, No hematuria, No flank pain, No urinary flow changes, No urinary incontinence or retention MSK: No back pain, No neck pain, No joint pain, No myalgias Skin: No skin lesions, No rashes Neuro: No weakness, No numbness, No paresthesias, No LOC, + dizziness, + headache Psych: No anxiety/panic, No depression, No SI/HI, No AH/VH Heme/Lymph: No bruising, No bleeding, No lymphadenopathy Endocrine: No Polyuria, No Polydipsia, No Temperature Intolerance Alll other systems reviewed are negative. [facility]LY [facility] Past Medical History Attestation statement: The following information was validated with the patient. Source: old records reviewed and nursing notes reviewed Medical History No known health problems Surgical History Hx of cholecystectomy Social History Social History Household Members: Family Household Members Other:: kids-3 Alcohol intake: current Alcohol intake frequency: holidays/special occasions only Patient Tobacco Use Status: Current someday Tobacco user Advance Directives: No Advance Directives Information Provided: No Physical Exam Vital Signs: Vital Signs: Last Vital Signs Temp 97.2 F 02/14/23 09:28 Pulse 65 02/14/23 12:24 Resp 16 02/14/23 12:24 BP 109/69 02/14/23 09:28 Pulse Ox 100 02/14/23 12:24 O2 Del Method Room Air 02/14/23 09:28 BMI result Body Mass Index 34.5 Vital signs stable General: Nontoxic appearing. NAD. Lying in bed with the lights dimmed. Skin: Warm and dry. No rashes or lesions. Head: Normocephalic, atraumatic. EENT: EAC patent. Hearing is intact b/l. Conjunctiva clear. PERRLA. EOM intact. Nasal septum is midline. Nares patent bilaterally. Moist mucous membranes. Neck: Supple without LAD. Normal ROM. Trachea midline. Cardiac: Chest wall symmetric. RRR. S1 and S1 appreciated. No MRG. No JVD. Lungs: CTA bilaterally. No rales, rhonchi, or wheezes. Normal respiratory effort without accessory muscle use. Abdomen: No visible lesions or scars. Soft, non-tender, non-distended. Normoactive BS x4. No masses, hepatomegaly, or splenomegaly. Spine: No midline spinous tenderness. No deformity or step off. Ext: Upper and lower extremities atraumatic. Full ROM throughout.Capillary refill <2 seconds in all extremities. Pulses 2+ equal b/l. No edema, cyanosis, or clubbing. Neuro: Alert and oriented x3. Normal speech. CN 2-12 grossly intact. Strength 5/5 intact throughout. Sensation intact to light touch. NV intact distally. Reflexes 2+ bilaterally. Normal [id number], [id number]. Ambulating with steady gait. Psych: Appropriate mood and affect. Responds appropriately to questions. NIH Stroke Scale Internal: Initial- Upon Arrival Time: 07:43 Level of Consciousness: Alert Level of Consciousness Questions: Answers both questions correctly Level of Consciousness Commands: Performs both tasks correctly Best Gaze: Normal Visual: No visual loss Facial Palsy: Normal Motor Arm (Right): No drift Motor Arm (Left): No drift Motor Leg (Right): No drift Motor Leg (Left): No drift Limb Ataxia: Absent Sensory: Normal Best Language: No aphasia Dysarthia: Normal Extinction and Inattention: No abnormality Score: 0 Course Course Course Narrative: 0743-- Will obtain orthostatic VS due to patient's positional dizziness. Pain control/ antiemetics ordered. Will consider IV fluids pending orthos and re-evaluate. Initial NIH stroke scale 0. 0750-- CBC without leukocytosis. Chemistry without any acute electrolyte abnormality requiring intervention. urine negative. CT without any acute intracranial pathology. 0908-- EKG showing sinus bradycardia with sinus arrhythmia, no ischemic changes, abnormal when compared to previous. patient receiving IV fluids. 1107-- Patient's symptoms improved with meclizine and IVF. patient ambulating with steady gait. Vital signs stable. NIH stroke scale score still 0. Exam nonfocal > unlikely CVA, dissection, cerebellar stroke. Patient's symptoms are consistent with migraine. Will send patient home with script for meclizine and Toradol as she received these in the ED and tolerated them well. Educated patient on importance of following up with her primary care doctor as this may warrant further investigation and treatment. Patient agreeable with plan. Stable for discharge. Medications Administered Discontinued Medications Generic Name Dose Route Start Last Admin Trade Name Deisy PRN Reason Stop Dose Admin Diphenhydramine HCl 50 mg 02/14/23 07:37 02/14/23 08:06 Diphenhydramine Hcl 50 Mg/Ml Vial IVPUSH 02/14/23 07:38 50 mg ONCE ONE Administration Sodium Chloride 1,000 mls @ 999 mls/hr 02/14/23 09:30 02/14/23 12:19 Ns IV 02/14/23 10:30 Infused .Q1H1M PAKO Infusion Ketorolac Tromethamine 15 mg 02/14/23 07:37 02/14/23 08:05 Ketorolac Tromethamine 30 Mg/Ml Vial IVPUSH 02/14/23 07:38 15 mg ONCE ONE Administration Meclizine HCl 25 mg 02/14/23 10:30 02/14/23 10:46 Meclizine Hcl 25 Mg Tablet PO 02/14/23 10:31 25 mg ONCE ONE Administration Metoclopramide HCl 10 mg 02/14/23 07:37 02/14/23 08:06 Metoclopramide Hcl 10 Mg/2 Ml Vial IVPUSH 02/14/23 07:38 10 mg ONCE ONE Administration Medical Decision Making Medical Decision Making [facility] Narrative: 0659-- 38-year-old female with history significant for GERD, obesity, tension SLAUGHTER presenting to the ED today with a complaint of headache and dizziness x2.5 mos. Vital signs stable, afebrile. PEERLA. EOM intact. Exam nonfocal. Cerebellum intact. Ambulating with steady gait. No temporal aa or scalp tenderness. Concern for tension SLAUGHTER vs migraine vs dehydration vs orthostatic hypotension vs postural tachycardia. Low suspicion for temporal arteritis. Unlikely CVA, cereballar stroke, ICH, cervical artery dissection or INSTRUCTIONAL TECHNOLOGY COORDINATOR infection as patient's symptoms have been gradual in and chronic. Unlikely encephalitis/meningitis > patient afebrile, no leukocytosis, chronic head pain. No concern for infection. Plan at this time is to obtain basic labs, imaging, pain control, ortho vitals, re-evaluation Differential Diagnosis Differential Diagnoses: The differential diagnosis associated with the presentation includes Concern for tension SLAUGHTER vs migraine vs dehydration vs orthostatic hypotension vs postural tachycardia. Low suspicion for temporal arteritis. Unlikely CVA or cerebellar stroke. Unlikely ICH, cervical artery dissection or INSTRUCTIONAL TECHNOLOGY COORDINATOR infection as patient's symptoms have been gradual in and chronic. Lab Data MDM Lab Attestation statement: I reviewed the patient's lab results. See above course narrative. 02/14/23 07:19 02/14/23 07:19 Labs: Lab Results 02/14/23 Range/Units 07:19 WBC 5.9 (4.8-10.8) X10*3/uL RBC 3.90 L (4.20-5.50) X10*6/uL Hgb 11.7 L (12.0-16.0) g/dl Hct 34.6 L (37.0-47.0) % MCV 88.7 (80.0-98.0) fL MCH 30.0 (27.0-33.0) pg MCHC 33.8 (31.0-35.0) g/dl RDW 11.9 (11.0-16.0) % Plt Count 158 L (160-400) X10*3/uL MPV 11.0 (9.4-12.3) fL Immature Gran % (Auto) 0.3 (0.0-0.4) % Neut % (Auto) 59.1 (45-73) % Lymph % (Auto) 33.3 (20-40) % [place] % (Auto) 6.8 (2-11) % Eos % (Auto) 0.3 (0-4) % Baso % (Auto) 0.2 (0-2) % Lymph # (Auto) 2.0 (1.2-4.9) X10*3/uL [place] # (Auto) 0.4 (0.1-1.2) X10*3/uL Eos # (Auto) 0.0 (0.0-0.4) X10*3/uL Baso # (Auto) 0.0 (0.0-0.2) X10*3/uL Abs Immat Gran (auto) 0.02 (0.00-0.03) X10*3/uL Absolute Neuts (auto) 3.5 (2.0-8.3) x10*3/uL Absolute Nucleated RBC 0.000 (0.0-0.012) X10*3/uL Nucleated RBC % (auto) 0.0 (0.0-0.2) /100WBC Sodium 141 (135-145) mmol/L Potassium 4.0 (3.3-5.1) mmol/L Chloride 109 H (96-108) mmol/L Carbon Dioxide 27 (22-29) mmol/L Anion Gap 9 L (12-20) BUN 11 (9-16) mg/dL Creatinine 0.83 (0.5-1.4) mg/dL Estim Creat Clear Calc 112.6 Estimated GFR > 60 Random Glucose 93 (60-115) mg/dL Calcium 9.2 D (8.4-10.2) mg/dL Magnesium 1.9 (1.6-2.6) mg/dL Total Bilirubin 0.4 (0.0-1.0) mg/dL AST 13 (5-31) U/L ALT 9 (0-31) U/L Alkaline Phosphatase 65 (39-117) U/L Total Protein 6.8 (6.5-8.0) g/dL Albumin 4.0 (3.5-5.0) g/dL Urine Test NEGATIVE (NEGATIVE) Independent Interpretation I performed an independent interpretation of an: EKG and CT Scan Interpretation: CT scan head / brain without intracranial pathology, agree with radiologist's interpretation. Radiology Impression Discussion of test interpretation with radiology: I have reviewed the radiologist's reading. Radiologist Impression: CT head/brain wo IV con IMPRESSION: No acute intracranial pathology. External Record Review External record reviewed: Inpatient record Prescription Management I considered prescription management with: Pain Medication Discharge Plan Discharge Clinical Impression: Migraine Patient Disposition: Home, Self-Care Instructions: Migraine Headache (ED) Additional Instructions: your lab workup was unremarkable. The CT of your head / brain did not show any pathology. your orthostatic vital signs were negative. Your EKG was negative. Your symptoms are most consistent with a migraine. Toradol as an anti-inflammatory that has been sent to your pharmacy. Take this as needed for pain. Meclizine is a medication that can treat dizziness. This has been sent to your pharmacy. Take this as needed. Please follow-up with your primary care provider this week as migraines are a chronic condition and can recur. Return to the emergency department if you develop worsening symptoms. Prescriptions: New ketorolac 10 mg tablet 10 mg PO Q8H 5 Days Qty: 15 0RF Rx Instructions: Patient tolerated dose in the emergency department. meclizine 25 mg tablet 25 mg PO DAILY PRN (Reason: dizziness) Qty: 10 0RF No Action gabapentin 100 mg capsule 100 mg PO BID Qty: 20 0RF omeprazole 20 mg capsule,delayed release(DR/EC) 20 mg PO BID sucralfate 1 gram tablet 1 g PO QIDACHS 21 Days Qty: 90 0RF Referrals: [facility] [Provider Group] [facility] [place] [facility] [Provider Group] Physician,Unknown J [Primary Care Provider] - Stand Alone Forms: Work/School Release Interventions: ED Discharge Assessment Last Done: 02/14/23 12:24 Discharge Date/Time: 02/14/23 12:25
[2023-02-14 07:07] VITALS: BP 120/76; PULSE 59; RESP 16; O2SAT 98
[2023-02-14 07:28] LABS: MANUAL DIFF FLAG NO
--- NOTE | 2023-02-14 07:29 | PC.NURSE ---
axox4; neuros intact; vss; pt reports 03/12 SLAUGHTER denies blurry vision/cp/sob/n/v/d; denies head injury. provider at bedside at this time.
[2023-02-14 07:34] LABS: Basophils Percent Auto 0.2 % (0-2); Eosinophils Percent Auto 0.3 % (0-4); Hematocrit 34.6 % (37.0-47.0); Hemoglobin 11.7 g/dl (12.0-16.0); Imm Gran Abs Auto 0.02 X10*3/uL (0.00-0.03); Imm Gran Pct Auto 0.3 % (0.0-0.4); Lymphocytes Percent Auto 33.3 % (20-40); Mean Corpuscular HGB Conc 33.8 g/dl (31.0-35.0); Mean Corpuscular Volume 88.7 fL (80.0-98.0); Monocytes Absolute Auto 0.4 X10*3/uL (0.1-1.2); Monocytes Percent Auto 6.8 % (2-11); Neutrophils Absolute Auto 3.5 x10*3/uL (2.0-8.3); Neutrophils Percent Auto 59.1 % (45-73); Platelet Count 158 X10*3/uL (160-400); Red Cell Distribution Width 11.9 % (11.0-16.0); UPreg QC Valid YES; Urine Pregnancy NEGATIVE (NEGATIVE); White Blood Count 5.9 X10*3/uL (4.8-10.8)
--- NOTE | 2023-02-14 07:43 | PC.NURSE ---
iv established; tech at bedside obtaining orthostatic vitals.
[2023-02-14 07:46] VITALS: BP 120/83; BP 127/79; PULSE 57; PULSE 66
[2023-02-14 07:46] LABS: Alanine Aminotransferase 9 U/L (0-31); Alkaline Phosphatase 65 U/L (39-117); Anion Gap 9 (12-20); Aspartate Amino Transferase 13 U/L (5-31); Bilirubin Total 0.4 mg/dL (0.0-1.0); Blood Urea Nitrogen 11 mg/dL (9-16); Calcium 9.2 mg/dL (8.4-10.2); Carbon Dioxide 27 mmol/L (22-29); Chloride 109 mmol/L (96-108); Creatinine Clr Calc Pharmacy 112.6; Estimated Glomerular Filt Rate > 60; Glucose Random 93 mg/dL (60-115); Magnesium 1.9 mg/dL (1.6-2.6); Sodium 141 mmol/L (135-145); Total Protein 6.8 g/dL (6.5-8.0)
[2023-02-14 07:48] VITALS: BP 113/82; PULSE 79
--- NOTE | 2023-02-14 07:51 | ECG_ITS ---
Test Reason : headache Blood Pressure : / mmHG Vent. Rate : 052 BPM Atrial Rate : 052 BPM P-R Int : 170 ms QRS Dur : 088 ms QT Int : 426 ms P-R-T Axes : 035 039 039 degrees QTc Int : 396 ms Sinus bradycardia with sinus arrhythmia Otherwise normal ECG When compared with ECG of 16-JAN-2023 13:47, Heart rate has decreased Referred By: Alia Biswas Electronically Signed By:ALEJO YOST
[2023-02-14] MEDS: Ketorolac Tromethamine 30 MG/ML VIAL 15 MG IVPUSH (08:05)
[2023-02-14] MEDS: Metoclopramide HCl 10 MG/2 ML VIAL IVPUSH (08:06)
[2023-02-14] MEDS: diphenhydrAMINE HCL 50 MG/ML VIAL IVPUSH (08:06)
--- NOTE | 2023-02-14 08:07 | PC.NURSE ---
orthos obtained as documented. pt medicated per aug. obtaining ekg at this time.
[2023-02-14 09:28] VITALS: BP 109/69; PULSE 56; RESP 18; TEMP 36.2; O2SAT 100
[2023-02-14] MEDS: 0.9 % Sodium Chloride 1,000 ML 999 ML IV (09:35)
[2023-02-14] MEDS: Meclizine HCl 25 MG TABLET PO (10:46)
[2023-02-14 12:24] VITALS: PULSE 65; RESP 16; O2SAT 100
== END 2023-02-14 12:25 | disposition home or self-care (01) ==
PROVIDERS: Emergency Medicine; Physician Assistant Medical; Emergency Provider Emergency Medicine
DX: G43.909 Migraine, unspecified, not intractable, without status migrainosus (principal); R00.1 Bradycardia, unspecified; R29.700 NIHSS score 0; F17.200 Nicotine dependence, unspecified, uncomplicated; E66.9 Obesity, unspecified; Z68.34 Body mass index [BMI] 34.0-34.9, adult; Z79.899 Other long term (current) drug therapy
CPT/HCPCS: 36415; 70450; 80053; 81025; 83735; 85025; 93005; 96361; 96374; 96375; 99284; J1200; J1885; J2765

== ENCOUNTER → 2023-03-21 12:58 | Outpatient (BNVA) | payer OTHER, SELFPAY | PROVIDERS: Visit Provider Physician Assistant Surgical ==

== ENCOUNTER 2023-04-05 14:18 | Outpatient (REF) | payer OTHER, SELFPAY ==
--- NOTE | 2023-04-05 | EMG_ITS ---
Chief complaint: Went to ER in January for tingling of hands and legs. Reason for referral: Evaluate for neuropathy Referred by: Margaret Page MD Procedure done: Upper and lower extremity NCS/EMG Precautions and/or limitations: None The limb temperature was monitored continuously and remained between 32-36 degrees C during the performance of the NCS. Nerve Conduction Studies Anti Sensory Summary Table ?Stim Site NR Onset (ms) Norm Onset (ms) Peak (ms) Norm Peak (ms) O-P Amp (?V) Norm O-P Amp Site1 Site2 Delta-0 (ms) Dist (cm) Abrahan (m/s) Norm Abrahan (m/s) Left Median Anti Sensory (2nd Digit) Wrist ? 2.6 3.5 <3.6 57.7 >10 Wrist 2nd Digit 2.6 14.0 54 Right Median Anti Sensory (2nd Digit) Wrist ? 2.7 3.6 <3.6 40.1 >10 Wrist 2nd Digit 2.7 14.0 52 Right Radial Anti Sensory (Thumb) Forearm ? 1.5 2.0 <3.1 41.1 Forearm Thumb 1.5 0.0 Left Sural Anti Sensory (Lat Mall) Calf ? 3.2 4.0 <4.0 11.2 >5.0 Calf Lat Mall 3.2 14.0 44 Right Sural Anti Sensory (Lat Mall) Calf ? 3.4 4.0 <4.0 7.1 >5.0 Calf Lat Mall 3.4 14.0 41 Left Ulnar Anti Sensory (5th Digit) Wrist ? 2.6 3.3 <3.7 35.2 >15.0 Wrist 5th Digit 2.6 14.0 54 Right Ulnar Anti Sensory (5th Digit) Wrist ? 2.6 3.3 <3.7 24.9 >15.0 Wrist 5th Digit 2.6 14.0 54 Motor Summary Table ?Stim Site NR Onset (ms) Norm Onset (ms) O-P Amp (mV) Norm O-P Amp iAmp (mV) Amp (1st) (%) Site1 Site2 Delta-0 (ms) Dist (cm) Abrahan (m/s) Norm Abrahan (m/s) Right Median Motor (Abd Poll Brev) Wrist ? 3.4 <3.9 13.4 >4.5 15.7 100.0 Elbow Wrist 3.9 20.0 51 >45 Elbow ? 7.3 12.6 15.2 94.0 Left Peroneal Motor (Ext Dig Brev) Ankle ? 4.0 <4.0 3.2 >2.5 3.9 100.0 Ankle Ext Dig Brev 4.0 0.0 B Fib ? 11.2 3.1 3.6 96.9 B Fib Ankle 7.2 34.0 47 >40 Poplt ? 11.7 3.0 3.6 93.8 Poplt B Fib 0.5 4.5 90 >40 Right Peroneal Motor (Ext Dig Brev) Ankle ? 3.7 <4.0 2.5 >2.5 4.1 100.0 Ankle Ext Dig Brev 3.7 0.0 B Fib ? 11.3 2.1 2.7 84.0 B Fib Ankle 7.6 33.0 43 >40 Poplt ? 12.4 3.7 4.6 148.0 Poplt B Fib 1.1 5.0 45 >40 Right Tibial Motor (Abd Armstrong Brev) Ankle ? 4.9 <5 6.3 >2.5 8.8 100.0 Ankle Abd Armstrong Brev 4.9 0.0 Knee ? 14.2 7.0 9.8 111.1 Knee Ankle 9.3 38.0 41 >40 Right Ulnar Motor (Abd Dig Minimi) Wrist ? 3.0 <3.0 8.6 >5 11.0 100.0 B Elbow Wrist 3.5 20.5 59 >45 B Elbow ? 6.5 9.2 11.7 107.0 A Elbow B Elbow 1.3 10.0 77 >45 A Elbow ? 7.8 8.7 11.5 101.2 EMG ?Side Muscle Nerve Root Ins Act Fibs Psw Amp Dur Poly Recrt Int Pat Comment Right 1stDorInt Ulnar C8-T1 Nml Nml Nml Nml Nml 0 Nml Complete Right FlexCarRad Median C6-7 Nml Nml Nml Nml Nml 0 Nml Complete Right Biceps Musculocut C5-6 Nml Nml Nml Nml Nml 0 Nml Complete Right Triceps Radial C6-7-8 Nml Nml Nml Nml Nml 0 Nml Complete Right Deltoid Axillary C5-6 Nml Nml Nml Nml Nml 0 Nml Complete Right AbdHallucis MedPlantar S1-2 Nml Nml Nml Nml Nml 0 Nml Complete Right AntTibialis Dp Br Peron L4-5 Nml Nml Nml Nml Nml 0 Nml Complete Right PostTibialis Tibial L5, S1 Nml Nml Nml Nml Nml 0 Nml Complete Right MedGastroc Tibial S1-2 Nml Nml Nml Nml Nml 0 Nml Complete Right VastusMed Femoral L2-4 Nml Nml Nml Nml Nml 0 Nml Complete FINDINGS: All motor and sensory nerves tested showed normal latencies, amplitudes and conduction velocities. Concentric needle EMG was performed in selected muscles of the right upper and lower extremity. Study did not reveal signs of electric abnormalities as shown in the table below. IMPRESSION: 1. This is a normal Study. 2. There is no electrodiagnostic evidence for median neuropathy, ulnar neuropathy, brachial plexopathy, cervical radiculopathy. peroneal neuropathy, tibial neuropathy. lumbosacral plexopathy, lumbar radiculopathy, or peripheral neuropathy. Thank you for your kind referral. Stephanie Grimaldo MD, KYAE Board Certified, [place] Board of Physical Medicine and Rehabilitation (ABPMR) Board Certified, [place] Board of Electrodiagnostic Medicine (ABEM) CODIN 57151 x 2 MTDD
== END 2023-04-05 14:19 | disposition home or self-care (01) ==
LOC: HO.NEURO 14:18
PROVIDERS: PCP Student in an Organized Health Care Education/Training Program; Visit Provider Student in an Organized Health Care Education/Training Program
DX: R20.0 Anesthesia of skin (principal)
CPT/HCPCS: 95886; 95912

== ENCOUNTER → 2023-04-05 14:22 | Outpatient (BNV) | payer OTHER, SELFPAY | PROVIDERS: PCP Student in an Organized Health Care Education/Training Program; Visit Provider Physical Medicine & Rehabilitation | DX: R20.2 Paresthesia of skin (principal) | CPT/HCPCS: 95886; 95912 ==

== ENCOUNTER 2023-04-18 11:42 | Outpatient (REF) | payer OTHER, SELFPAY ==
[2023-04-23 06:29] LABS: HPV mRNA E6/E7 rflx Not Detected (Not Detected)
== END 2023-04-18 11:43 | disposition home or self-care (01) ==
LOC: HO.LNP 11:42
PROVIDERS: PCP Student in an Organized Health Care Education/Training Program; Visit Provider Advanced Practice Midwife
DX: R87.615 Unsatisfactory cytologic smear of cervix (principal); Z12.4 Encounter for screening for malignant neoplasm of cervix; Z11.51 Encounter for screening for human papillomavirus (HPV)
CPT/HCPCS: 87624; 88142; 99212

== ENCOUNTER 2023-04-18 11:42 | Outpatient (AMB) | payer OTHER, SELFPAY ==
[2023-04-18 11:50] VITALS: BP 134/82; BMI 37.1
--- NOTE | 2023-04-18 11:50 | MHC.OFFVIS ---
Intake Vital Signs 04/18/23 11:50 Height 5 ft 7 in Weight 237 lb BMI 37.1 BP 134/82 Intake Visit Reasons: re-peat pap Transmitter Tester Required: Yes Transmitter Tester Language: Greenlandic Information Interpreted: non-clinical & clinical Dock Operations Supervisor: Dock Operations Supervisor Present (Aidyn) Allergies No Known Allergies Allergy (Verified 04/18/23 11:50) Medication List - Last Reconciled 04/18/23 by Kacie Armenta CNM cholecalciferol (vitamin D3) 25 mcg PO DAILY gabapentin 100 mg PO BID hydroxyzine pamoate 50 mg PO BID ketorolac 10 mg PO Q8H 5 days loratadine 10 mg PO DAILY meclizine 25 mg PO DAILY PRN omeprazole 20 mg PO BID polyethylene glycol 3350 (ClearLax) 17 grams PO DAILY sucralfate 1 g PO QIDACHS 21 days Is last menstrual period known: Yes Last menstrual period: 04/07/23 Post menopausal: No HPI re-peat pap HPI Details Patient is here to get her Pap repeated for some unknown reason the Pap came back unsatisfactory. PFSH Medical History (Updated 04/18/23 @ 12:04 by Kacie Armenta CNM) No known health problems Surgical History (Updated 04/18/23 @ 12:07 by Kacie Armenta CNM) Hx of tubal ligation Hx of cholecystectomy Social History Household Members: Family Household Members Other:: kids-3 Alcohol intake: current Alcohol intake frequency: holidays/special occasions only Patient Tobacco Use Status: Current someday Tobacco user Female Reproductive History Menstrual Date of last menstrual period: 04/07/23 control method: none History of abnormal pap smear: Yes (2020- pos hpv) Results Reviewed Results Reviewed: Name: Kiran Neil Age/Sex: 37/F Attending: Kacie Armenta CNM : 1985 Submitted by: Kacie Armenta CNM Copies to: [facility] MR #: [id number] Status: DEP REF Collected: 01/03/23 Location: [facility] Received: 01/04/23 Interpretation Unsatisfactory. Scant cellularity. HPV mRNA E6/E7: NOT DETECTED This assay detects E6/E7 viral messenger RNA (mRNA) from 14 high-risk HPV types (16, 18, 31, 33, 35, 39, 45, 51, 52, 56, 58, 59, 66, 68) HPV testing performed by [facility] [facility], [place], [place]. See reference laboratory pion of the EMR for entire report. Clinical Information LMP:12/05/22 Previous PAP test:07/16/19, positive HPV Material Received ThinPrep-Cervical Copies To [facility] [address] [place], [place] [id number] Kacie Armenta CNM [address] [place] [address] [place] [address] Electronically Signed By: CLARIBEL Sanchez (ASCP) 02/05/23 7306 The Pap Test is a screening procedure with the inherent possibility of both false negative and false positive results. Results should be interpreted in the context of historic and current clinical findings. Reliability of the Pap Test is enhanced by performing the test on a regular repetitive basis. Patient: Kiran Neil Age/Sex: 37/F MR#: [id number] Page 1 of 1 Assessment & Plan Assessment & Plan (1) Hx of abnormal cervical Pap smear: Comment: last pap neg w pos hpv; 08/23 Pap is inadequate due to this scant cellularity but HPV was negative-needs repeat Pap, repeat Pap with Co testing being done 04/18/2023. Code(s): Z87.42 - Personal history of other diseases of the female genital tract (2) Hx of tubal ligation: Code(s): Z98.51 - Tubal ligation status Plan Pap with Co testing is being sent. She had no other concerns today she has a history of a tubal ligation so her surgical history needs to be updated to reflect this. We will see her for annual exams and if this Pap is negative she will receive a letter.. Orders: Orders Pap Smear Today R87.615 - Unsatisfactory cytologic smear of cervix Coding Level of Care Code Est Pt Level 3 (53260) Diagnoses Hx of abnormal cervical Pap smear Z87.42 Hx of tubal ligation Z98.51
== END 2023-04-18 12:03 | disposition home or self-care (01) ==
LOC: HO.HWS 11:42
PROVIDERS: PCP Student in an Organized Health Care Education/Training Program; Visit Provider Advanced Practice Midwife
DX: Z87.42 Personal history of other diseases of the female genital tract (principal); Z98.51 Tubal ligation status
CPT/HCPCS: 99213

== ENCOUNTER 2023-06-14 11:04 | Outpatient (AMB) | payer OTHER, SELFPAY ==
[2023-06-14 11:07] VITALS: BP 126/80; BMI 37.3
--- NOTE | 2023-06-14 11:07 | A.OFFVIS_ITS ---
Intake Vital Signs 06/14/23 11:07 Height 5 ft 7 in Weight 238 lb BMI 37.3 BP 126/80 Intake Visit Reasons: vag pain Intake Note: Having lower pelvic pain but states it's worst on left side Ward Secretary Required: Yes Ward Secretary Language: Algerian Information Interpreted: non-clinical & clinical Front Office Spec: Front Office Spec Present (Pierce) Allergies No Known Allergies Allergy (Verified 06/14/23 11:09) Medication List - Last Reconciled 06/14/23 by Kacie Armenta CNM cholecalciferol (vitamin D3) 25 mcg PO DAILY docusate sodium 100 mg PO DAILY fluticasone propionate 50 mcg/actuation sprays intranasal hydroxyzine pamoate 50 mg PO BID ketorolac 10 mg PO Q8H 5 days loratadine 10 mg PO DAILY meclizine 25 mg PO DAILY PRN nortriptyline 10 mg PO BEDTIME omeprazole 20 mg PO BID polyethylene glycol 3350 (ClearLax) 17 grams PO DAILY sucralfate 1 g PO QIDACHS 21 days Is last menstrual period known: Yes Last menstrual period: 05/27/23 Post menopausal: No HPI vag pain HPI Details Patient has had a tubal ligation she is getting regular periods she was seen by this provider in April and had a repeat Pap smear her last period came on . She has noticed a pain for the last 2 weeks or so on her left side she has never had a pain like this before and it is feel sharp to her bothers her at night she would like to get it checked out she is worried about it. She does not have any constipation or diarrhea or any other symptoms or urinary complaints either she has not worried about STDs but is open to testing during this visit. PFSH Medical History No known health problems Surgical History Hx of tubal ligation Hx of cholecystectomy Social History Household Members: Family Household Members Other:: kids-3 Alcohol intake: current Alcohol intake frequency: holidays/special occasions only Patient Tobacco Use Status: Current someday Tobacco user Female Reproductive History Menstrual Age of Menarche: 13 Duration of menses: 6-7 days Date of last menstrual period: 05/27/23 control method: other (tubal ligation) Total pregnancies: 3 Full term: 3 Number of Living Children: 3 Date of last pap smear: 04/19/23 (negative) History of abnormal pap smear: Yes (2020 +HPV) Physical Exam Vital Signs: Last Vital Signs BP 126/80 06/14/23 11:07 BMI result Body Mass Index 37.3 Other: Vagina pink clear moist with clear spin bark ight mucus consistent with ovulatory function. External Female Exam: normal external appearance Speculum Exam - Vagina: normal appearance of the vagina and normal vaginal discharge Speculum Exam - Cervix: normal appearance of the cervix Bimanual exam- vagina & uterus: normal bimanual exam, uterine size normal, consistency normal, uterine mobility normal, uterine shape normal and non-tender Bimanual Exam- Adnexa, other: normal adnexae, no masses and No adnexal tenderness Results Reviewed Results Reviewed: Name: Kiran Neil Age/Sex: 38/F Attending: Kacie Armenta CNM : 1985 Submitted by: Kacie Armenta CNM Copies to: Margaret Patterson MD MR #: [id number] Status: DEP REF Collected: 04/18/23 Location: [facility] Received: 04/19/23 Interpretation Satisfactory for evaluation. Mild inflammation. Abundant mucus. Negative for intraepithelial lesion or malignancy. HPV mRNA E6/E7: NOT DETECTED This assay detects E6/E7 viral messenger RNA (mRNA) from 14 high-risk HPV types (16, 18, 31, 33, 35, 39, 45, 51, 52, 56, 58, 59, 66, 68) HPV testing performed by [facility], [place], [place]. See reference laboratory portion of the EMR for entire report. Clinical Information LMP: 04/07/23 Previous PAP test: 01/03/23, Unsatisfactory Material Received ThinPrep-Cervical Copies To Kacie Armenta [address] [place] [address] Margaret Patterson MD [address] [place], [place] [id number] Electronically Signed By: CLARIBEL Sanchez ([facility]) 05/07/23 0756 The Pap Test is a screening procedure with the inherent possibility of both false negative and false positive results. Results should be interpreted in the context of historic and current clinical findings. Reliability of the Pap Test is enhanced by performing the test on a regular repetitive basis. Patient: Kiran Neil Age/Sex: 38/F Acct#: Assessment & Plan Assessment & Plan (1) Hx of tubal ligation: Code(s): Z98.51 - Tubal ligation status (2) Pelvic pain: Comment: Left side times 2-3 weeks, patient has ovulatory mucus midcycle. Suspect this is related to ovulatory function will assess with ultrasound and have follow-up. Code(s): R10.2 - Pelvic and perineal pain Plan Reviewed that I suspect that this pain is related to ovulatory function and is not pathologic or problematic but just to be sure since she is worried I am ordering a pelvic ultrasound and we can have a follow-up visit after if per the ultrasound it appears that it is a normal functional cyst there will be no need for any intervention after. Orders: Orders US pelvic and transvaginal Today R10.2 - Pelvic and perineal pain, Z98.51 - Tubal ligation status Coding Level of Care Code Est Pt Level 3 (29259) Diagnoses Hx of tubal ligation Z98.51 Pelvic pain R10.2
== END 2023-06-14 12:55 | disposition home or self-care (01) ==
LOC: HO.HWSM 11:05
PROVIDERS: PCP Student in an Organized Health Care Education/Training Program; Visit Provider Advanced Practice Midwife
DX: Z98.51 Tubal ligation status (principal); R10.2 Pelvic and perineal pain
CPT/HCPCS: 99213

== ENCOUNTER 2023-06-14 11:04 | Outpatient (REF) | payer OTHER, SELFPAY ==
[2023-06-15 04:14] LABS: CT PCR NOT DETECTED (Not Detect.); NG PCR NOT DETECTED (Not Detect.)
[2023-06-15 14:56] LABS: BV Int Neg Control Negative (Negative); BV Int Pos Control Positive (Positive)
== END 2023-06-14 11:05 | disposition home or self-care (01) ==
LOC: HO.LNP 11:04
PROVIDERS: PCP Student in an Organized Health Care Education/Training Program; Visit Provider Advanced Practice Midwife
DX: R10.2 Pelvic and perineal pain (principal); Z98.51 Tubal ligation status
CPT/HCPCS: 0353U; 87480; 87510; 87660; 99212

== ENCOUNTER 2023-06-18 13:13 | Outpatient (REF) | payer OTHER, SELFPAY ==
--- NOTE | ~2023-06-18 | US_ITS ---
EXAMINATION: US PELVIS COMPLETE TRANSVAGINAL PELVIC ULTRASOUND: CLINICAL INFORMATION: Pelvic pain COMPARISON: None TECHNIQUE: Transabdominal imaging initially performed. For more definitive evaluation of the endometrium and ovaries, transvaginal technique was employed. FINDINGS: Uterus is anteverted measuring 9.9 x 5.8cm. Endometrium measures 1.2 cm containing fluid. Nabothian cysts identified. Right ovary measures 4.0 x 2.4 x 1.5 cm for a volume of 7.5 mL. Previous measurement was 3.9 x 2.7 x 1.8 cm. Corpus luteum cyst measuring 1.5 x 1.3 x 1.7 cm is seen. The left ovary measures 3.1 x 1.8 x 2.6 cm for a volume of 7.6 mL. Previous measurement was 4.1 x 2.6 x 2.4 cm. Dominant follicle identified measuring 1.8 x 1.3 x 1.6 cm. There is small amount of pelvic free fluid in the left adnexa. US/US pelvic and transvaginal IMPRESSION: Small amount of endometrial and adnexal free fluid. Right corpus luteum cyst and dominant left ovarian follicle.
== END 2023-06-18 13:14 | disposition home or self-care (01) ==
LOC: HO.US 13:13
PROVIDERS: PCP Student in an Organized Health Care Education/Training Program; Visit Provider Advanced Practice Midwife
DX: R10.2 Pelvic and perineal pain (principal); Z98.51 Tubal ligation status
CPT/HCPCS: 76830; 76856

== ENCOUNTER 2023-10-31 12:01 | Outpatient (AMB) | payer OTHER, SELFPAY ==
[2023-10-31 12:35] VITALS: BP 130/84; PULSE 75; O2SAT 99; BMI 38.4
--- NOTE | 2023-10-31 12:35 | MHC.PC.OV ---
Vital Signs 10/31/23 12:35 Height 5 ft 7 in Weight 245 lb BMI 38.4 BP 130/84 Blood Pressure Location Lt brachial Position Sitting Pulse 75 Pulse Source Pulse Oximeter Pulse Oximetry (%) 99 Oxygen Delivery Method Room Air Intake Visit Reasons: New patient Senior Quality Analyst Required: Yes Ropewalk Rope Maker: Not Required per policy Accompanied by: Self / Same As Patient Allergies No Known Allergies Allergy (Verified 06/24/25 10:31) Medication List - Last Reconciled 10/31/23 by Kurt Dumont MD cholecalciferol (vitamin D3) 25 mcg PO DAILY docusate sodium 100 mg PO DAILY fluticasone propionate 50 mcg/actuation sprays intranasal hydroxyzine pamoate 50 mg PO BID ketorolac 10 mg PO Q8H 5 days loratadine 10 mg PO DAILY meclizine 25 mg PO DAILY PRN omeprazole 20 mg PO BID polyethylene glycol 3350 (ClearLax) 17 grams PO DAILY sucralfate 1 g PO QIDACHS 21 days Tobacco use date assessed: 10/31/23 Dental Screening Dental Screen Date: 10/31/23 Did you have a dental visit in the last 12 months?: Yes Did you have a dental problem in the last 6 months where you did not have access to dental care?: No Was dental information given to patient?: Patient has dentist HPI New patient HPI Details Patient comes in today to establish care - is a new patient to the practice She is transferring over from the [facility] States that she currently feels okay and mainly just needs to get all of her Rx refilled She denies any headaches or dizziness Denies any chest pains, no SOB No nausea/vomiting, no abdominal pain No change in bowel habits noted She denies any acute urinary symptoms She last had her pap smear and gynecology exam done back in 04/2023 - pap was negative [facility] Medical History (Updated 06/24/25 @ 11:18 by Kurt Dumont MD) Insomnia Morbid obesity with BMI of 40.0-44.9, adult Impaired fasting glucose Obesity (BMI 30-39.9) Smoker Migraine Vitamin D deficiency Nonalcoholic hepatosteatosis Constipation Allergic rhinitis GERD (gastroesophageal reflux disease) Surgical History Hx of tubal ligation Hx of cholecystectomy Social History (Reviewed 06/24/25 @ 10:09 by JASON Sheridan Household Members: Family Household Members Other:: kids-3 Housing: House Alcohol intake: current Alcohol intake frequency: holidays/special occasions only Patient Tobacco Use Status: Current someday Tobacco user e-Cigarette/Vaping Use: Never Used service: No Current occupational status: employed Current occupational exposures/hazards: No Cognitive needs: No Hearing needs: No Vision needs: No Female Reproductive History Menstrual Age of Menarche: 13 Questionnaire PHQ-9 Over the last 2 weeks, how often have you been bothered by any of the following problems? 1. Little interest or pleasure in doing things: not at all 2. Feeling down, depressed, or hopeless: not at all 3. Trouble falling or staying asleep, or sleeping too much: not at all 4. Feeling tired or having little energy: not at all 5. Poor appetite or overeating: not at all 6. Feeling bad about yourself - or that you are a failure or have let yourself or your family down: not at all 7. Trouble concentrating on things, such as reading the newspaper or watching television: not at all 8. Moving or speaking so slowly that other people could have noticed. Or the opposite - being so fidgety or restless that you have been moving around a lot more than usual: not at all 9. Thoughts that you would be better off or of hurting yourself in some way: not at all Total score: 0 Depression Screening Interpretation: Negative Depression Screening Done: Yes 77384 - PHQ-9 Billing: Yes Source: Developed by Drs. Casimiro Arroyo, Marika Rivas, Adrián Connell and colleagues, with an educational kong from [employer]. Thrive Questionnaire Date Thrive assessed: 10/31/23 I am a: Patient What is your living situation today?: I have a steady place to live Within the past 12 months, did the food you bought not last and you didn't have the money to get more?: Never true Within the past 12 months, did you worry whether your food would run out before you got money to buy more?: Never true Do you have trouble paying for medicines?: No Do you have trouble getting transportation to medical appointments?: No Do you have trouble paying your heating and electricity bill?: No Do you have trouble taking care of your child, family member or friend?: No Do you have trouble with day-to-day activities such as bathing, preparing meals, shopping, managing finances, etc.?: No Are you currently unemployed and looking for a job?: No Are you interested in more education?: No Please select the resources that you would like help with: None Currently or been in a relationship where the following occur: no concerns reported THRIVE Score: 0 AUDIT C Alcohol Use Questionnaire (AUDIT-C) 1. How often do you have a drink containing alcohol?: Never Total Score: 0 Score Reviewed/Action Taken: Yes JOHN-7 AMB Questionnaire JOHN-7 Date JOHN - 7 assessed: 10/31/23 Feeling nervous, anxious, or on edge: 0 = Not at all Not being able to stop or control worryin = Not at all Worrying too much about different things: 0 = Not at all Trouble relaxin = Not at all Being so restless that it is hard to sit still: 0 = Not at all Becoming easily annoyed or irritable: 0 = Not at all Feeling afraid as if something awful might happen: 0 = Not at all Total JOHN-7 score (0-4 normal; 5-9 mild; 10-14 moderate; 15-21 severe): 0 Source: Developed by Drs. Casimiro Arroyo, Marika Rivas, Adrián Connell and colleagues, with an educational kong from [employer]. Review of Systems Const Denies chills, Denies fatigue, Denies fever(s) and Denies headache(s) ENT Denies dysphagia, Denies dizziness, Denies otalgia, Denies headache(s), Denies neck pain, Denies odynophagia and Denies sore throat Card Denies chest pain, Denies palpitations and Denies dyspnea Resp Denies chest congestion, Denies cough and Denies dyspnea GI Denies abdominal pain, Denies constipation, Denies dysphagia, Denies heartburn, Denies diarrhea, Denies nausea, Denies odynophagia and Denies vomiting Denies difficulty voiding, Denies nocturia and Denies dysuria Musc Denies back pain and Denies neck pain Skin/Breast Denies rash Neuro Denies dizziness and Denies headache(s) Endo Denies fatigue and Denies palpitations Physical exam (Primary Care) Vital Signs: Last Vital Signs Pulse 75 10/31/23 12:35 BP 130/84 10/31/23 12:35 Pulse Ox 99 10/31/23 12:35 Oxygen Delivery Method Room Air 10/31/23 12:35 BMI result Body Mass Index 38.4 Tobacco/Smoking Status: Tobacco use Status Tobacco use date assessed 10/31/23 10/31/23 12:36 Patient Tobacco Use Status Current someday Tobacco 10/31/23 12:36 PHQ-9: PHQ-9 Score PHQ-9: Total score 0 10/31/23 13:11 Depression Screening Interpretation: Negative Thrive Assessment: Date of Thrive Assessment Date Thrive assessed 10/31/23 10/31/23 12:36 Currently or been in a relationship where the following occur: no concerns reported Const General: no acute distress and alert HENMT Ears: TM's normal bilaterally and EAC's normal Throat: Yes posterior oropharynx normal and Yes tonsils normal (no TP congestion) Neck Neck: Yes supple and No lymphadenopathy Thyroid: Thyroid normal Resp Auscultation: clear to auscultation bilaterally, no rales and no wheezes Cardio Rate: regular rate Rhythm: regular rhythm Heart sounds: no murmurs GI Palpation (GI): Soft to palpation and nontender Auscultation: normal bowel sounds General: Yes no CVA tenderness Back/Spine/Pelvis Back: no CVA tenderness Thoracic/Lumbar Spine: No lumbar spinal tenderness Skin Rashes: no rashes Extrem General: Yes no clubbing, cyanosis or edema Coding Level of Care Code New Pt Level 4 (66996) Diagnoses Gastroesophageal reflux disease without esophagitis K21.9 Esophagitis presence: without esophagitis Allergic rhinitis, unspecified seasonality, unspecified trigger J30.9 Allergic rhinitis trigger: unspecified Allergic rhinitis seasonality: unspecified Dizziness R42 Constipation, unspecified constipation type K59.00 Constipation type: unspecified constipation type Vitamin D deficiency E55.9 Anxiety F41.9 Smoker F17.200 Obesity (BMI 30-39.9) E66.9
== END 2023-10-31 13:16 | disposition home or self-care (01) ==
PROVIDERS: PCP Student in an Organized Health Care Education/Training Program; Visit Provider Internal Medicine
DX: K21.9 Gastro-esophageal reflux disease without esophagitis (principal); J30.9 Allergic rhinitis, unspecified; R42 Dizziness and giddiness; K59.00 Constipation, unspecified; E55.9 Vitamin D deficiency, unspecified; F41.9 Anxiety disorder, unspecified; F17.200 Nicotine dependence, unspecified, uncomplicated; E66.9 Obesity, unspecified
CPT/HCPCS: 99499

== ENCOUNTER 2024-01-08 09:13 | Outpatient (REF) | payer OTHER, SELFPAY ==
[2024-01-10 02:45] LABS: CT PCR NOT DETECTED (Not Detect.); NG PCR NOT DETECTED (Not Detect.)
[2024-01-10 11:52] LABS: Bacterial Vaginosis PCR POSITIVE (Negative); Candida Group PCR NOT DETECTED (Not Detect); Candida glab krusei PCR NOT DETECTED (Not Detect); Trichomonas vaginalis PCR NOT DETECTED (Not Detect)
== END 2024-01-08 09:14 | disposition home or self-care (01) ==
LOC: HO.LAB 09:13
PROVIDERS: Visit Provider Advanced Practice Midwife
DX: N89.8 Other specified noninflammatory disorders of vagina (principal); Z20.2 Contact with and (suspected) exposure to infections with a predominantly sexual mode of transmission
CPT/HCPCS: 0352U; 87491; 87591; 99395

== ENCOUNTER 2024-01-08 09:13 | Outpatient (AMB) | payer OTHER, SELFPAY ==
[2024-01-08 09:18] VITALS: BP 120/70; BMI 38.4
--- NOTE | 2024-01-08 09:18 | A.OFFVIS_ITS ---
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 She had her annual exam last year the Pap was inadequate but a repeat in April was negative. She then had problem with a abdominal pain and she had a follow-up ultrasound done though this suspicion was that it was ovarian in origin she did not come for that result so we reviewing that normal ultrasound today. [facility] Medical History (Updated 01/08/24 @ 09:56 by Kacie Armenta CNM) Obesity (BMI 30-39.9) Smoker Migraine Vitamin D deficiency Nonalcoholic hepatosteatosis Constipation Allergic rhinitis GERD (gastroesophageal reflux disease) Surgical History Hx of tubal ligation Hx of cholecystectomy Social History Household Members: Family Household Members Other:: kids-3 Alcohol intake: current Alcohol intake frequency: holidays/special occasions only Patient Tobacco Use Status: Current someday Tobacco user Current occupational status: employed Cognitive needs: No Hearing needs: No Vision needs: No Female Reproductive History Menstrual Age of Menarche: 13 Duration of menses: 3-5 days Date of last menstrual period: 01/14/24 control method: permanent sterilization Total pregnancies: 3 Full term: 3 Date of last pap smear: 04/19/23 (neg.) Physical Exam Vital Signs: BMI result Body Mass Index 38.4 Results Reviewed Results Reviewed: Name: Kiran Neil Age/Sex: 38/F Attending: Kacie Armenta CNM : 1985 Submitted by: Kacie Armenta CNM Copies to: Margaret Patterson MD MR #: [id number] Status: DEP REF Collected: 04/18/23 Location: [facility] Received: 04/19/23 Interpretation Satisfactory for evaluation. Mild inflammation. Abundant mucus. Negative for intraepithelial lesion or malignancy. HPV mRNA E6/E7: NOT DETECTED This assay detects E6/E7 viral messenger RNA (mRNA) from 14 high-risk HPV types (16, 18, 31, 33, 35, 39, 45, 51, 52, 56, 58, 59, 66, 68) HPV testing performed by [facility], [place], [place]. See reference laboratory portion of the EMR for entire report. Clinical Information LMP: 04/07/23 Previous PAP test: 01/03/23, Unsatisfactory Material Received ThinPrep-Cervical Copies To Kacie Armenta CNM [address] [place] [address] [place] [address] Margaret Patterson MD [address] [place] [address] [id number] Electronically Signed By: CLARIBEL Sanchez (ASCP) 05/07/23 0756 The Pap Test is a screening procedure with the inherent possibility of both false negative and false positive results. Results should be interpreted in the context of historic and current clinical findings. Reliability of the Pap Test is enhanced by performing the test on a regular repetitive basis. Patient: Kiran Neil Age/Sex: 38/F MR#: [id number] Page 1 of 1 [place] [address] Ultrasound Report Signed Patient: Kiran Neil MR#: [id number] : 1985 Acct:[id number] Age/Sex: 38 / F ADM Date: 06/18/23 Loc: HO.US Attending Dr: Kacie Armenta CNM Ordering Physician: Kacie Armenta CNM Date of Service: 06/18/23 Procedure(s): US pelvic and transvaginal Accession Number(s): [id number] cc: Kacie Armenta CNM; Margaret Patterson MD~ EXAMINATION: US PELVIS COMPLETE TRANSVAGINAL PELVIC ULTRASOUND: CLINICAL INFORMATION: Pelvic pain COMPARISON: None TECHNIQUE: Transabdominal imaging initially performed. For more definitive evaluation of the endometrium and ovaries, transvaginal technique was employed. FINDINGS: Uterus is anteverted measuring 9.9 x 5.8cm. Endometrium measures 1.2 cm containing fluid. Nabothian cysts identified. Right ovary measures 4.0 x 2.4 x 1.5 cm for a volume of 7.5 mL. Previous measurement was 3.9 x 2.7 x 1.8 cm. Corpus luteum cyst measuring 1.5 x 1.3 x 1.7 cm is seen. The left ovary measures 3.1 x 1.8 x 2.6 cm for a volume of 7.6 mL. Previous measurement was 4.1 x 2.6 x 2.4 cm. Dominant follicle identified measuring 1.8 x 1.3 x 1.6 cm. There is small amount of pelvic free fluid in the left adnexa. US/US pelvic and transvaginal IMPRESSION: Small amount of endometrial and adnexal free fluid. Right corpus luteum cyst and dominant left ovarian follicle. 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 Code(s): Z87.42 - Personal history of other diseases of the female genital tract Category: Medical (4) Well woman exam with routine gynecological exam: Code(s): Z01.419 - Encounter for gynecological examination (general) (routine) without abnormal findings Category: Medical (5) Encounter for screening examination for sexually transmitted disease: Code(s): Z11.3 - Encounter for screening for infections with a predominantly sexual mode of transmission Category: Medical Plan -----Discussed in this visit the following: healthy balanced diet, regular and consistent exercise, getting recommended health screens, doing the best she can for her particular health concerns, kegel exercises, pap smear screening and followup recommendations, mammography screening and SBE, normal changes in cycles in her life stage--- No Pap necessary at this time, HPV negative x2, despite a previous positive HPV. Reviewed patient's previous testing for STIs testing done during this visit but also reviewed past labs all negative she declined any blood work for HIV or other serum STIs. She has no worries about infidelity at this time. I reviewed her ultrasound with her in detail also reviewed ovarian function throughout the menstrual cycle and the formation of follicles and then ovulation with a resulting corpus luteum cyst afterwards which was demonstrated in her ultrasound. She sees her primary care provider when she needs to she does not have any major issues. 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 Her kids are 16 14 and 8 and she is doing well she is happy that she has her tubes tied. RTC 1 year. Orders: Orders Bacterial Vaginosis Panel Today N89.8 - Other specified noninflammatory disorders of vagina CT NG by PCR Today N89.8 - Other specified noninflammatory disorders of vagina, Z20.2 - Contact with and (suspected) exposure to infections with a predominantly sexual mode of transmission Coding Level of Care Code Est Pt Prev Care 18-39y(84471) Diagnoses Obesity (BMI 30-39.9) E66.9 Breast cancer screening Z12.39 Hx of abnormal cervical Pap smear Z87.42 Well woman exam with routine gynecological exam Z01.419 Encounter for screening examination for sexually transmitted disease Z11.3
== END 2024-01-08 09:55 | disposition home or self-care (01) ==
LOC: HO.HWSM 09:13
PROVIDERS: Visit Provider Advanced Practice Midwife
DX: Z01.419 Encounter for gynecological examination (general) (routine) without abnormal findings (principal); E66.9 Obesity, unspecified; Z87.42 Personal history of other diseases of the female genital tract
CPT/HCPCS: 99395

== ENCOUNTER 2024-02-28 07:59 | Outpatient (REF) | payer OTHER, SELFPAY ==
[2024-02-28 08:09] LABS: MANUAL DIFF FLAG NO
[2024-02-28 08:30] LABS: Basophils Percent Auto 0.2 % (0-2); Eosinophils Percent Auto 0.7 % (0-4); Hematocrit 35.3 % (37.0-47.0); Hemoglobin 11.9 g/dl (12.0-16.0); Imm Gran Abs Auto 0.01 X10*3/uL (0.00-0.03); Imm Gran Pct Auto 0.2 % (0.0-0.4); Lymphocytes Absolute Auto 2.1 X10*3/uL (1.2-4.9); Lymphocytes Percent Auto 37.8 % (20-40); Mean Corpuscular HGB Conc 33.7 g/dl (31.0-35.0); Mean Corpuscular Volume 88.9 fL (80.0-98.0); Monocytes Absolute Auto 0.5 X10*3/uL (0.1-1.2); Monocytes Percent Auto 8.5 % (2-11); Neutrophils Absolute Auto 2.9 x10*3/uL (2.0-8.3); Neutrophils Percent Auto 52.6 % (45-73); Platelet Count 159 X10*3/uL (160-400); Red Blood Count 3.97 X10*6/uL (4.20-5.50); Red Cell Distribution Width 12.4 % (11.0-16.0); White Blood Count 5.5 X10*3/uL (4.8-10.8)
[2024-02-28 08:32] LABS: Appearance Urine Clear; Color Urine Yellow; Glucose Urine UA Negative (Negative); Leukocyte Esterase Urine Negative (Negative); Nitrite Urine Negative (Negative); PH 5.5 (5.0-9.0); Urine Blood Negative (Negative); Urine Ketones Negative (Negative); Urine Protein Negative (Neg-Trace)
[2024-02-28 09:06] LABS: Alanine Aminotransferase 15 U/L (0-31); Albumin Level 4.1 g/dL (3.5-5.0); Alkaline Phosphatase 68 U/L (39-117); Anion Gap 10 (12-20); Aspartate Amino Transferase 15 U/L (5-31); Bilirubin Total 0.4 mg/dL (0.0-1.0); Blood Urea Nitrogen 10 mg/dL (9-16); Calcium 9.2 mg/dL (8.4-10.2); Carbon Dioxide 25 mmol/L (22-29); Chloride 108 mmol/L (96-108); Cholesterol 159 mg/dL (<200); Estimated Glomerular Filt Rate > 60; Glucose Fasting 110 mg/dL (60-99); HDL Cholesterol 46 mg/dL (>40); LDL Cholesterol Calculated 96 mg/dL (<100); Potassium 4.1 mmol/L (3.3-5.1); Sodium 139 mmol/L (135-145); Total Protein 7.3 g/dL (6.5-8.0); Triglycerides 89 mg/dL (<150)
[2024-02-28 09:24] LABS: TSH reflex Free T4 0.81 uIU/mL (0.32-4.0); Vitamin D 25-OH Total 36.8 ng/mL (>30)
[2024-02-28 09:26] LABS: Estimated Average Glucose 105 mg/dL; Hemoglobin A1C 119.3441 umol/L; Hemoglobin A1c % 5.3 % (<6.0)
== END 2024-02-28 08:00 | disposition home or self-care (01) ==
LOC: HO.LAB 07:59
PROVIDERS: PCP Internal Medicine; Visit Provider Internal Medicine
DX: Z00.00 Encounter for general adult medical examination without abnormal findings (principal); E55.9 Vitamin D deficiency, unspecified; D64.9 Anemia, unspecified; E78.00 Pure hypercholesterolemia, unspecified; R30.0 Dysuria; R73.01 Impaired fasting glucose
CPT/HCPCS: 36415; 80053; 80061; 81003; 82306; 83036; 84443; 85025

== ENCOUNTER 2024-03-02 15:54 | Outpatient (AMB) | payer OTHER, SELFPAY ==
[2024-03-02 16:10] VITALS: BP 120/82; PULSE 65; O2SAT 99; BMI 38.7
--- NOTE | 2024-03-02 16:10 | MHC.PC.OV ---
Vital Signs 03/02/24 16:10 Height 5 ft 7 in Weight 247 lb BMI 38.7 BP 120/82 Blood Pressure Location Lt brachial Position Sitting Pulse 65 Pulse Source Pulse Oximeter Pulse Oximetry (%) 99 Oxygen Delivery Method Room Air Intake Visit Reasons: Annual Exam Email Campaign Specialist Required: No Accompanied by: Self / Same As Patient Allergies No Known Allergies Allergy (Verified 03/02/24 16:49) Medication List - Last Reconciled 03/02/24 by Kurt Dumont MD cholecalciferol (vitamin D3) 25 mcg PO DAILY 90 days docusate sodium 100 mg PO DAILY PRN 90 days fluticasone propionate 50 mcg/actuation 2 sprays intranasal .QD hydroxyzine pamoate 50 mg (2 x 25 mg) PO BID PRN 30 days ketorolac 10 mg PO Q8H 5 days loratadine 10 mg PO DAILY PRN 90 days meclizine 25 mg PO DAILY PRN omeprazole 20 mg PO BID 90 days polyethylene glycol 3350 (ClearLax) 17 grams PO DAILY 30 days sucralfate 1 g PO QIDACHS 21 days Tobacco use date assessed: 03/02/24 Dental Screening Dental Screen Date: 03/02/24 Did you have a dental visit in the last 12 months?: Yes Did you have a dental problem in the last 6 months where you did not have access to dental care?: No Was dental information given to patient?: Patient has dentist HPI Annual Exam HPI Details Patient comes in today for her annual physical examination States that she feels okay She denies any headaches or dizziness Denies any chest pains, no SOB No nausea/vomiting, no abdominal pain No change in bowel habits noted She denies any acute urinary symptoms Patient had her follow up labs done a couple of days ago - to discuss her results She had her annual gynecology appointment last month on 01/08/2024 and her next appt is scheduled for 01/13/2025 [facility] Medical History (Updated 03/09/24 @ 04:03 by Kurt Dumont MD) Impaired fasting glucose Obesity (BMI 30-39.9) Smoker Migraine Vitamin D deficiency Nonalcoholic hepatosteatosis Constipation Allergic rhinitis GERD (gastroesophageal reflux disease) Surgical History Hx of tubal ligation Hx of cholecystectomy Social History Household Members: Family Household Members Other:: kids-3 Housing: House Alcohol intake: current Alcohol intake frequency: holidays/special occasions only Patient Tobacco Use Status: Current someday Tobacco user e-Cigarette/Vaping Use: Never Used service: No Current occupational status: employed Cognitive needs: No Hearing needs: No Vision needs: No Female Reproductive History Menstrual Age of Menarche: 13 Questionnaire PHQ-9 Over the last 2 weeks, how often have you been bothered by any of the following problems? 1. Little interest or pleasure in doing things: not at all 2. Feeling down, depressed, or hopeless: not at all 3. Trouble falling or staying asleep, or sleeping too much: not at all 4. Feeling tired or having little energy: not at all 5. Poor appetite or overeating: several days 6. Feeling bad about yourself - or that you are a failure or have let yourself or your family down: not at all 7. Trouble concentrating on things, such as reading the newspaper or watching television: not at all 8. Moving or speaking so slowly that other people could have noticed. Or the opposite - being so fidgety or restless that you have been moving around a lot more than usual: not at all 9. Thoughts that you would be better off or of hurting yourself in some way: not at all Total score: 1 Depression Screening Interpretation: Negative Depression Screening Done: Yes 80651 - PHQ-9 Billing: Yes Source: Developed by Drs. Casimiro Arroyo, Marika Rivas, Adrián Connell and colleagues, with an educational kong from [employer]. Thrive Questionnaire Date Thrive assessed: 03/02/24 I am a: Patient What is your living situation today?: I choose not to answer this question Within the past 12 months, did the food you bought not last and you didn't have the money to get more?: I choose not to answer this question Within the past 12 months, did you worry whether your food would run out before you got money to buy more?: I choose not to answer this question Do you have trouble paying for medicines?: No Do you have trouble getting transportation to medical appointments?: No Do you have trouble paying your heating and electricity bill?: No Do you have trouble taking care of your child, family member or friend?: No Do you have trouble with day-to-day activities such as bathing, preparing meals, shopping, managing finances, etc.?: No Are you currently unemployed and looking for a job?: Yes Are you interested in more education?: No Please select the resources that you would like help with: None Currently or been in a relationship where the following occur: I choose not to answer THRIVE Score: 0 AUDIT C Alcohol Use Questionnaire (AUDIT-C) 1. How often do you have a drink containing alcohol?: Never 3. How often do you have six or more drinks on one occasion?: Never Total Score: 0 Score Reviewed/Action Taken: Yes JOHN-7 AMB Questionnaire JOHN-7 Date JOHN - 7 assessed: 03/02/24 Feeling nervous, anxious, or on edge: 1 = Several days Not being able to stop or control worryin = Several days Worrying too much about different things: 1 = Several days Trouble relaxin = Several days Being so restless that it is hard to sit still: 1 = Several days Becoming easily annoyed or irritable: 1 = Several days Feeling afraid as if something awful might happen: 1 = Several days Total JOHN-7 score (0-4 normal; 5-9 mild; 10-14 moderate; 15-21 severe): 7 Source: Developed by Drs. Casimiro Arroyo, Marika Rivas, Adrián Connell and colleagues, with an educational kong from [employer]. Review of Systems Const Denies chills, Denies fatigue, Denies fever(s), Denies headache(s) and Denies malaise Eyes Denies blurry vision, Denies change in vision, Denies irritation and Denies itchy eyes ENT Denies dysphagia, Denies dizziness, Denies otalgia, Denies headache(s), Denies nasal congestion, Denies neck pain, Denies odynophagia, Denies sinus pain and Denies sore throat Card Denies chest pain, Denies rapid heart rate, Denies irregular heart rhythm, Denies palpitations and Denies dyspnea Resp Denies chest congestion, Denies cough, Denies dyspnea and Denies wheezing GI Denies abdominal pain, Denies bloating, Denies constipation, Denies dysphagia, Denies heartburn, Denies diarrhea, Denies nausea, Denies odynophagia and Denies vomiting Denies hematuria, Denies urinary frequency, Denies dysuria, Denies urinary incontinence and Denies urinary urgency Musc Denies back pain, Denies arthralgias, Denies joint swelling, Denies muscle weakness and Denies neck pain Skin/Breast Denies breast pain, Denies breast mass, Denies change in pigmentation, Denies lesions, Denies rash and Denies unusual bruising Neuro Denies dizziness, Denies headache(s) and Denies paresthesias Psych Denies anxiety and Denies depression Endo Denies fatigue and Denies palpitations Brian/Lymph Denies easy bruising Aller/Immun Denies itchy eyes and Denies wheezing Physical exam (Primary Care) Vital Signs: Last Vital Signs Pulse 65 03/02/24 16:10 BP 120/82 03/02/24 16:10 Pulse Ox 99 03/02/24 16:10 Oxygen Delivery Method Room Air 03/02/24 16:10 BMI result Body Mass Index 38.7 Tobacco/Smoking Status: Tobacco use Status Tobacco use date assessed 03/02/24 03/02/24 16:12 Patient Tobacco Use Status Current someday Tobacco 03/02/24 16:12 e-Cigarette/Vaping Use Never Used 03/02/24 16:21 PHQ-9: PHQ-9 Score PHQ-9: Total score 1 03/02/24 16:50 Depression Screening Interpretation: Negative Thrive Assessment: Date of Thrive Assessment Date Thrive assessed 03/02/24 03/02/24 16:12 Currently or been in a relationship where the following occur: I choose not to answer Const General: no acute distress, alert and awake Orientation/consciousness: patient oriented x3 HENMT Head: Yes normocephalic and Yes atraumatic Ears: external ears normal, TM's normal bilaterally and EAC's normal General nose exam: No nasal discharge present Face and sinus: Yes normal facial exam and Yes sinuses nontender Teeth and gingiva: dentition normal Throat: Yes posterior oropharynx normal and Yes tonsils normal (no TP congestion) Eyes Eyelids: Yes eyelids normal Conjunctivae: conjunctivae normal Pupils: Equal, round and reactive pupils present EOM: EOMs intact bilaterally Neck Neck: Yes no lymphadenopathy and Yes supple Thyroid: Thyroid normal Resp Auscultation: clear to auscultation bilaterally, no rales and no wheezes Cardio Rate: regular rate Rhythm: regular rhythm Heart sounds: no murmurs GI Palpation (GI): Soft to palpation, nontender and No hepatosplenomegaly present Auscultation: normal bowel sounds General: Yes no CVA tenderness Back/Spine/Pelvis Back: no CVA tenderness Thoracic/Lumbar Spine: thoracic and lumbar spine normal to inspection Skin Lesions: no lesions Rashes: no rashes Neuro General: patient oriented x3, moves all extremities, no focal motor deficits and CN's II-XI intact bilaterally Cranial nerves: Yes Equal, round and reactive pupils present Cognition (Neuro): normal cognition Gait exam (Neuro): Normal gait present Extrem General: Yes no clubbing, cyanosis or edema Results Reviewed Results Reviewed: Laboratory Tests 02/28/24 02/28/24 08:04 08:07 WBC 5.5 Hgb 11.9 L Hct 35.3 L Plt Count 159 L Sodium 139 Potassium 4.1 Creatinine 0.75 Estimated GFR > 60 Fasting Glucose 110 H Hemoglobin A1c % 5.3 Calcium 9.2 AST 15 ALT 15 Triglycerides 89 Cholesterol 159 LDL Cholesterol, Calc 96 HDL Cholesterol 46 25-OH Vitamin D Total 36.8 TSH 0.81 Ur Specific [place] 1.020 Urine Protein Negative Urine Glucose (UA) Negative Urine Blood Negative Urine Nitrite Negative Ur Leukocyte Esterase Negative Coding Level of Care Code Est Pt Prev Care 18-39y(73307) Diagnoses Annual physical exam Z00.00 Gastroesophageal reflux disease without esophagitis K21.9 Esophagitis presence: without esophagitis Allergic rhinitis, unspecified seasonality, unspecified trigger J30.9 Allergic rhinitis trigger: unspecified Allergic rhinitis seasonality: unspecified Impaired fasting glucose R73.01 Dizziness R42 Nonalcoholic hepatosteatosis K76.0 Constipation, unspecified constipation type K59.00 Constipation type: unspecified constipation type Vitamin D deficiency E55.9 Smoker F17.200 Obesity (BMI 30-39.9) E66.9
== END 2024-03-02 17:01 | disposition home or self-care (01) ==
PROVIDERS: PCP Internal Medicine; Visit Provider Internal Medicine
DX: Z00.00 Encounter for general adult medical examination without abnormal findings (principal); K21.9 Gastro-esophageal reflux disease without esophagitis; J30.9 Allergic rhinitis, unspecified; E66.9 Obesity, unspecified; Z68.38 Body mass index [BMI] 38.0-38.9, adult; R73.01 Impaired fasting glucose; R42 Dizziness and giddiness; K76.0 Fatty (change of) liver, not elsewhere classified; K59.00 Constipation, unspecified; E55.9 Vitamin D deficiency, unspecified; F17.200 Nicotine dependence, unspecified, uncomplicated

== ENCOUNTER → 2024-03-02 15:54 | Outpatient (BNVA) | payer OTHER, SELFPAY | PROVIDERS: Visit Provider Internal Medicine | DX: Z00.01 Encounter for general adult medical examination with abnormal findings (principal); K21.9 Gastro-esophageal reflux disease without esophagitis; J30.9 Allergic rhinitis, unspecified; R73.01 Impaired fasting glucose; R42 Dizziness and giddiness; K76.0 Fatty (change of) liver, not elsewhere classified; K59.00 Constipation, unspecified; E55.9 Vitamin D deficiency, unspecified; E66.9 Obesity, unspecified; F17.200 Nicotine dependence, unspecified, uncomplicated; Z71.6 Tobacco abuse counseling | CPT/HCPCS: 96127; 99395 ==

== ENCOUNTER 2024-08-12 10:52 | Outpatient (AMB) | payer OTHER, SELFPAY ==
[2024-08-12 11:09] VITALS: BP 120/80; PULSE 82; O2SAT 98
--- NOTE | 2024-08-12 11:09 | MHC.OFFWIV ---
Intake Vital Signs 08/12/24 11:09 Weight 247 lb BP 120/80 Blood Pressure Location Lt brachial Position Sitting Pulse 82 Pulse Source Pulse Oximeter Pulse Oximetry (%) 98 Oxygen Delivery Method Room Air Intake Visit Reasons: EP Pain in ovaries Intake Note: Patient here for pain in right ovary that has been preset for about 1 week now. Patient Tobacco Use Status: Current someday Tobacco user Allergies No Known Allergies Allergy (Verified 08/12/24 11:16) Do you need a note to return to daycare/school/sports/work: No HPI HPI Comments History of Present Illness Details Patient is a 39yo F who presents with ovary pain R side Ongoing x 1 week States pulsating pain No similar symptoms Pain is constant; pain level is 7/10 She has not tried anything for it Camping pain that has no worsening symptoms LMP was 1 week ago; no vaginal bleeding No vaginal discharge complaint or dysuria frequency or urgency No fever or chills Normal appetite, but + nausea, no vomiting Normal BMs; denies diarrhea or constipation Abdominal surgeries; none that she can remember but tubal ligation noted on PMH When menstruation came she had cramps but felt like it hasnt gotten better since then She has OBGYN but has not called and said she was checked 1 year ago for similar pain and said everything was fine PCP is Tim. [facility] Medical History (Updated 03/09/24 @ 04:03 by Kurt Dumont MD) Impaired fasting glucose Obesity (BMI 30-39.9) Smoker Migraine Vitamin D deficiency Nonalcoholic hepatosteatosis Constipation Allergic rhinitis GERD (gastroesophageal reflux disease) Surgical History Hx of tubal ligation Hx of cholecystectomy Social History Household Members: Family Household Members Other:: kids-3 Housing: House Alcohol intake: current Alcohol intake frequency: holidays/special occasions only Patient Tobacco Use Status: Current someday Tobacco user e-Cigarette/Vaping Use: Never Used service: No Current occupational status: employed Cognitive needs: No Hearing needs: No Vision needs: No Female Reproductive History Menstrual Age of Menarche: 13 Review of Systems Const Denies chills, Denies fatigue and Denies fever(s) Card Denies chest pain Resp Denies cough GI Denies constipation, Reports GI cramping, Reports nausea and Denies vomiting Denies hematuria, Denies difficulty voiding, Denies dysuria, Reports pelvic pain, Denies urinary incontinence, Denies urinary urgency and Denies vaginal discharge Musc Denies myalgias Skin/Breast Denies erythema Endo Denies fatigue Physical Exam Vital Signs: Last Vital Signs Pulse 82 08/12/24 11:09 BP 120/80 08/12/24 11:09 Pulse Ox 98 08/12/24 11:09 Oxygen Delivery Method Room Air 08/12/24 11:09 General: Non-toxic, NAD. Speaking full sentences. Skin: Warm dry throughout Eye: EOMI HENT: Airway patent. Uvula midline. No pharyngeal erythema or edema. No CHILD CARE CENTER ADMINISTRATOR. Bilateral canals clear. TM non-erythematous, non-bulging. No TM perforation or hemotympanum noted. Respiratory: CTA bilaterally. No wheezes, rales or rhonchi Cardiac: RRR. No murmur Abdominal: BS present. + TTP with light and deep RLQ. Minimal to LLQ with deep palpation. No palpable masses. No abdominal distention or pusatile mass. No rebound or guarding. Negative rosving and obturator MSK: Full ROM extremities. Neurology: Alert. No aphasia or facial droop. Gait without abnormality Psych: Good mood and affect Results AMB Urinalysis, Automated UA Leukoctes 0 Tesfaye/uL Last Edit by MACO Alvarez on 08/12/24 12:04 UA Nitrite Negative Last Edit by MACO Alvarez on 08/12/24 12:04 UA Urobilinogen 0.2 mg/dL Last Edit by MACO Alvarez on 08/12/24 12:04 UA Protein 0 mg/dL Last Edit by MACO Alvarez on 08/12/24 12:04 UA pH 6.0 Last Edit by MACO Alvarez on 08/12/24 12:04 UA Blood 0 Gabo/uL Last Edit by MACO Alvarez on 08/12/24 12:04 UA Specific [place] 1.015 Last Edit by MACO Alvarez on 08/12/24 12:04 UA Ketone Negative Last Edit by MACO Alvarez on 08/12/24 12:04 UA Bilirubin 0 mg/dL Last Edit by MACO Alvarez on 08/12/24 12:04 UA Glucose 0 mg/dL Last Edit by MACO Alvarez on 08/12/24 12:04 AMB Test Urine AMB Test Urine Negative Last Edit by MACO Alvarez on 08/12/24 12:04 Assessment & Plan Assessment & Plan (1) Pelvic pain: Comment: Left side times 2-3 weeks, patient has ovulatory mucus midcycle. Suspect this is related to ovulatory function will assess with ultrasound and have follow-up. Code(s): R10.2 - Pelvic and perineal pain Plan: Patient seen and evaluated with interpreting services via video; gogo U/a: negative hcg: negative She has stable vital signs with is without fever on complaints; no concern for acute abdomen at this time; temp 98.4 in office She has hx of cyst to R ovary in june 2023, ? cyst present or larger. Discussed via interpretter naproxen and obgyn/pcp follow up\ Discussed ER s/s of appendicitis etc and when to seek treatment Patient gave verbal understanding and had no additional questions or concerns at time of discharge All questions answered Orders: Orders AMB Urinalysis Automated Today Z13.9 - Encounter for screening, unspecified AMB HCG Urine Test Today Z32.02 - Encounter for test, result negative Medications: New naproxen 375 mg PO BID PRN 10 tabs 0RF pain Coding Level of Care Code Est Pt Level 3 (75470) Diagnoses Pelvic pain R10.2
--- OUTSIDE RECORDS SUMMARY | 2024-08-12 12:37 | XMS_ITS | Clinical Summary ---
Author Organization [facility] ity Address [address] [place] [address] Care Team Providers Care Fence Setter Name Role Phone Unavailable Primary Care Provider Unavailabl e Social History Tobacco Use Types Packs/Day Years Used Date Smoking Tobacco: Never Assessed Comments Unknown Sex and Gender Information Value Date Recorded Sex Assigned at Not on file Legal Sex Female 8:11 PM EST Gender Identity Not on file Sexual Orientation Not on file Plan of Treatment Health Maintenance Due Date Last Done Comments DTaP,Tdap,and Td Vaccines (1 - Tdap) 2005 Hepatitis B Vaccines (1 of 3 - 19+ 3-dose series) 2005 Cervical Cancer Screening: P ap Smear 2007 Depression Screening 06/27/2023 HIV Screening 06/27/2023 Hepatitis C Screening 06/27/2023 Social Influencers of Health Screening 06/27/2023 COVID-19 Vaccine ( - 2023-2 5 season) 2024 Influenza Vaccine (#1) 2024 HIB Vaccines Aged Out No longer eligi ble based on patient's age to complete this topic HPV Vaccines Aged Out No longer eligi ble based on patient's age to complete this topic Hepatitis A Vaccines Aged Out No long er eligible based on patient's age to complete this topic IPV Vaccines Aged Out No longer eligi ble based on patient's age to complete this topic MMR Vaccines Aged Out No longer eligi ble based on patient's age to complete this topic Meningococcal ACWY Vaccine Aged Out N o longer eligible based on patient's age to complete this topic Meningococcal B Vacine Aged Out No lo nger eligible based on patient's age to complete this topic Pneumococcal Vaccine: Pediat rics (0 to 5 Years) and At-Risk Patients (6 to 64 Years) Aged Out No longer eligible b ased on patient's age to complete this topic RSV Immunization Patients Un gwen 20 months Aged Out No longer eligible b ased on patient's age to complete this topic Varicella Vaccines Aged Out No longer eligible based on patient's age to complete this topic
--- OUTSIDE RECORDS SUMMARY | 2024-08-12 12:37 | XMS_ITS | Encounter Summary ---
Author Organization [employer] Address [address] [facility] [address] [place] [address] Care Team Providers Care Doubling Machine Operator Name Role Phone Nory Anna MD Primary Care Provider [phone] Encounter Details Date Type Department Care Team ([facility] st Contact Info) Description 01/30/2023 Orders Only [facility] MEDICINE [address] [place], [place] [phone] Nory Anna MD [address] [place], [place] [phone] Social History Tobacco Use Types Packs/Day Years Used Date Smoking Tobacco: Former Cigarettes Smokeless Tobacco: Never Alcohol Use Standard Drinks/Week Comments Not Currently 0 (1 standard drink = 0.6 oz pur e alcohol) Depression Answer Date Recorded Patient Health Questionnaire-2 Score 0 06/29/2022 Comments Unknown Sex and Gender Information Value Date Recorded Sex Assigned at Female 04/02/2022 10:20 AM EDT Legal Sex Female 10:20 AM EDT Gender Identity Female 04/02/2022 10:20 AM EDT Sexual Orientation Straight 04/02/2022 10 :20 AM EDT documented as of this encounter Plan of Treatment Not on file documented as of this encounter Visit Diagnoses Not on filedocumented in this encounter Care Teams Doubling Machine Operator Relationship Specialty Start Date End Date Nory Anna MD [address] [place], [place] [phone] PCP - General Family Medicine 01/24/21 documented as of this encounter
--- OUTSIDE RECORDS SUMMARY | 2024-08-12 12:37 | XMS_ITS | Clinical Summary ---
Author Organization [employer] Address [address] [place] [address] 7[address] [place] [address] Care Team Providers Care Metal Furrer Name Role Phone Nory Anna MD Primary Care Provider [phone] Allergies No known active allergies Medications docusate sodium (Colace) 100 MG capsule Take 1 capsule (100 mg) by mouth in the morning. 90 capsule 3 3 Active fluticasone (Flonase) 50 MCG/ACT nasal spray INSTILL 1 SPRAY IN EACH NOSTRIL ONCE DAILY NEEDED 48 g 3 3 Active hydrOXYzine pamoate (Vistaril) 25 MG capsule Take 1 capsule (25 mg) by mouth every 6 (six) hours if needed for anxiety. 60 capsule 3 3 Active cholecalciferol (Vitamin D3) 25 MCG (1000 UT) tablet Take 1 tablet (25 mcg) by mouth in the morning. 90 tablet 3 3 Active loratadine (Claritin) 10 MG tablet Take 1 tablet (10 mg) by mouth if needed each day for allergies. 90 tablet 3 3 Active meclizine (Antivert) 25 MG tablet TAKE 1 TABLET EVERY DAY NEEDED FOR DIZZINESS 30 tablet 3 3 Active polyethylene glycol, PEG, 3350 (HM ClearLax) 17 GM/SCOOP powder TAKE 17 GM MIXED IN 8 OUNCES OF WATER, COFFEE OR TEA ONCE DAILY 510 g 3 4 Active omeprazole (PriLOSEC) [address] capsule Take 20 mg by mouth 2 times daily. 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 Risks and benefits of medications reviewed, report side effects and return to clinic ro ED for worsening headache symptoms Numbness 01/22/2023 Assessment & Plan (01/22/2023 3:31 PM EDT): Pt reports numbness sensation improved w gabapentin but still some pressure feeling in head w no SLAUGHTER, no facial tenderness on exam Here VS are normal , complete physical including neurological exam is normal -urine preg test is neg -will do labs to r/o anemia w noted prior recent ER visit had lower hb -repeat TFT -refer for EMG -ok to continue gabapentin for now -pt to f up labs and EMG result and symptoms with PCP in 4 weeks, if symptoms persist with no clear etiology should consider brain image ,low suspicion for more concerning neuro abnormalities at this time as MS but will need to further investigate if symptoms fail to improve Left upper quadrant pain 09/28/2022 Assessment & Plan (09/28/2022 2:56 PM EDT): Ultrasound ordered F/u with GI in October 2022 Gastroesophageal reflux disease without esophagi tis 07/01/2022 Assessment & Plan (07/01/2022 6:01 PM EST): increase omeprazole to 40mg Lifestyle modifications Weight loss Tinnitus aurium, bilateral 07/01/2022 Assessment & Plan (09/28/2022 2:55 PM EDT): Audiology referral completed, no need for hearing aids Use white noise at nighttime See ENT at scheduled appt Assessment & Plan (07/01/2022 6:02 PM EST): Audiology referral Use white noise at nighttime See ENT at scheduled appt Steatosis of liver 05/23/2022 Assessment & Plan (04/11/2023 12:16 PM EST): Refer to nutrition for help with weight loss in mgmt of fatty liver disease Call GI at [facility] to make followup appointment, last seen 10/10/22 Umbilical hernia 05/23/2022 Vitamin D deficiency 05/23/2022 Chronic constipation 07/25/2018 Hip pain 07/25/2018 Low back pain radiating to left leg 07/25/2018 Gallstone 05/20/2018 Allergic rhinitis 10/08/2014 Anxiety 01/13/2014 Iron deficiency anemia 11/12/2013 Assessment & Plan (09/28/2022 2:55 PM EDT): Hg 11.8 today Encounters Date Type Department Care Team Description 05/19/2024 Telephone [facility] MEDICINE [address] [place] [address] [place], [place] RECALL from Last 3 Months Immunizations Name Administration Dates Next Due Hep B, adult 09/14/2020,08/15/2020 Influenza injectable quadriv alent IIV4 with preservative 02/27/2016 Influenza, Injectable, MDCK, preservative free 0 06/21/2015 Influenza, Split (incl. purified surface antigen ) 02/03/2013 Pneumococcal Polysaccharide PPSV23 11/12/2013 Tdap 05/06/2015,01/31/2011 Social History Tobacco Use Types Packs/Day Years Used Date Smoking Tobacco: Former Cigarettes Passive Smoke Exposure: Past Smokeless Tobacco: Current Tobacco Cessation:Ready to Q uit: Not Asked; Counseling Given: Not Answered Comments:Stopped smoking 2 mo ago Alcohol Use Standard Drinks/Week Comments Not Currently 0 (1 standard drink = 0.6 oz pur e alcohol) Housing Stability Answer Date Recorded What is your housing situation today? I have bridger abraham 08/15/[address] you li ve. Do you have problems with any of the following? None of the above 08/15/2023 Food Insecurity Answer Date Recorded Within the past 12 months, y ou worried that your food would run out before you got money to buy more: Never True 08/15/2023 Within the past 12 months,th e food you bought just didn't last and you didn't have enough money to get more: Never True Transportation Answer Date Recorded In the past 12 months, has l ack of transportation kept you from medical appts, meetings, work or from getting things needed for daily living? No 08/15/2023 Utilities Answer Date Recorded In the past 12 months, has t he electric, gas, oil or water company threatened to shut off services in your home? No 08/15/2023 Depression Answer Date Recorded Patient Health Questionnaire-2 Score 0 06/29/2022 Comments Unknown Sex and Gender Information Value Date Recorded Sex Assigned at Female 04/02/2022 10:20 AM EDT Legal Sex Female 10:20 AM EDT Gender Identity Female 04/02/2022 10:20 AM EDT Sexual Orientation Straight 04/02/2022 10 :20 AM EDT Last Filed Vital Signs Vital Sign Reading Time Taken Comments Blood Pressure 124/78 07/25/2023 9:02 AM EST Pulse 74 07/25/2023 9:02 AM EST Temperature 37.7 ??C (99.8 ??F) 04/08/2023 3:10 PM ES T Respiratory Rate 20 04/08/2023 3:10 PM EST Oxygen Saturation 100% 04/08/2023 3:10 PM EST Inhaled Oxygen Concentration - - Weight 108 kg (237 lb 9.6 oz) 07/08/2023 2:00 PM EST Height 170.2 cm (5' 7 ) 07/08/2023 2:00 PM EST Body Mass Index 37.21 07/08/2023 2:00 PM EST Plan of Treatment Health Maintenance Due Date Last Done Comments Alcohol/Substance Use Screening 1998 Family Planning (PISQ) 2001 Hepatitis A Vaccines (1 of 2 - Risk 2-dose series) 2005 Hepatitis B Vaccines (3 of 3 - 19+ 3-dose series) 02/15/2021 09/14/2020, 08/15/2020 Dental Oral Exam 07/29/2022 01/25/2022 Depression Screening 06/29/2023 06/29/2022, 06/29/2022 Dental Prophylaxis 01/24/2024 07/25/2023, 01/25/2022 COVID-19 Vaccine (1 - 2023-2 5 season) 2024 Influenza Vaccine (#1) 2024 6, 06/21/2015, 02/03/2013 Dental X-Ray: Full Mouth 04/14/2024 04/13/2021 Dental X-Ray: Bitewings 07/26/2024 07/25/19 24, 01/25/2022 SDOH Screening 08/14/2024 08/15/2023 Tobacco Screening 08/14/2024 08/15/2023 DTaP/Tdap/Td Vaccines (3 - T d or Tdap) 05/06/2025 05/06/2015, 01/31/2011 Pap Smear 04/18/2026 04/18/2023, 01/03/2023 Lipid Panel 06/29/2027 06/29/2022, 08/25/2020, 02/03/2020 Cervical Cancer Screening 01/04/2028 HPV/Cotest 01/04/2028 01/03/2023 Zoster Vaccines (1 of 2) 01/08/2036 RSV Patients and Patients Aged 60 years or older (1 - 1-dose 75+ series) 2061 Pneumococcal Vaccine: Pediatrics (0 to 5 Years) and At-Risk Patients (6 to 49) Years) Aged Out 11/12/2013 No longer eligible b ased on patient's age to complete this topic HIV Screening Completed 05/23/2022, 08/01/2020 Hepatitis C Screening Completed 05/23/2022 , 08/01/2020 HIB Vaccines Aged Out No longer eligi ble based on patient's age to complete this topic HPV Vaccines Aged Out No longer eligi ble based on patient's age to complete this topic IPV Vaccines Aged Out No longer eligi ble based on patient's age to complete this topic Meningococcal Vaccine Aged Out No nataliya yani eligible based on patient's age to complete this topic RSV under 20 months Aged Out No longe r eligible based on patient's age to complete this topic Rotavirus Vaccines Aged Out No longer eligible based on patient's age to complete this topic Procedures Procedure Name Priority Date/Time Associated Diagnosis Comments Full PROPHYLAXIS - ADULT Routine 07/25/2023 9:00 AM EST Dental calculus BITEWINGS - 4 RADIOGRAPHIC IMAGES Routine 07/25/2023 9:00 AM EST Dental calculus Localized gingival recession, minimal PAP SMEAR Routine 04/18/2023 12:03 PM EST HPV MRNA E6/E7 REFLEX TO HPV 16, 18/45 Routine 01/03/2023 12:24 PM EDT LIPID PANEL, STANDARD Routine 06/29/2022 9:46 AM EST Obesity (BMI 30-39.9) HEPATITIS PANEL, GENERAL Routine 05/23/2022 10:36 AM EST Epigastric pain HIV 1/2 ANTIGEN/ANTIBODY, FOURTH GENERATION W/RFL Routine 05/23/2022 10:36 AM EST Epigastric pain from Last 3 Months or Most Recently Relevant to Health Maintenance Results * Pap Smear (04/18/2023 12:03 PM EST) 04/18/2023 12:0 3 PM EST 04/19/2023 8:00 AM EST [facility] - 05/07/2023 7:56 AM EST ----- ------- Name: Bones,Kiran C ?Age/Sex: 38/F ? : 1985 Unit#: [id number] ?? Attend Dr: Kacie Armenta CNM ?Re04/18/23 ?Status: DEP REF ? Location: HO.LNP ?Disch: ? ----- ------- SPEC : [id number] ?RECD: 04/19/23 ? STATUS: ??SOUT ? REQ NUM: [id number] ? TATIANNA: 04/18/23 ? SUBM DR: Kacie Armenta CNM ? ENTERED: ??04/19/23 ?SP TYPE: Pap Smr ?OTHR DR: Margaret Patterson MD ORDERED: ??Pap Smear ? Interpretation ?? Satisfactory for evaluation. ?? Mild inflammation. ?? Abundant mucus. ?? Negative for intraepithelial lesion or malignancy. ?HPV mRNA E6/E7: ?NOT DETECTED ? This assay detects E6/E7 viral messenger RNA (mRNA) from 14 high-risk HPV types (16, 18, ?? 31, 33, 35, 39, 45, 51, 52, 56, 58, 59, 66, 68) ?? HPV testing performed by [facility], [place], [place]. ??See reference laboratory ?? portion of the EMR for entire report. ?Clinical Information LMP: 04/07/23 Previous PAP test: 01/03/23, Unsatisfactory ? Material Received ?? ThinPrep-Cervical Copies To: ?? KathiKacie WHIT ?? [address] [facility] ?? [place] [address] ?? [phone] ?? Margaret Patterson MD ?? [address] [facility] ?? [place] ?? [phone] ----- ------- Signed (signature on file) CLARIBEL Sanchez (ASCP) 05/07/23 0756 ? ----- ------- ? END OF REPORT ? us Generic External Data Provider LAB CYTOLOGY HOLLY BENITEZ Final Result [facility] [address] [place] [address] [phone] * HPV mRNA E6/E7 w/Reflex to HPV Genotypes 16, 18/45 (01/03/2023 12:24 PM EDT) Pathologist [facility] HPV nRNA E6/E7 Not Detected Not Detected [facility] Comment:Methodology: Transcr iption-Mediated AmplificationThis assay detects E6/E7 viral messenger RNA (mRNA) from 14high-risk HPV types (16,18,31,33,35,39,45,51,52,56,58,59,66,68).Cervical sources are required for HPV testing.If a vaginal source from a patient who has had atotal hysterectomy with removal of cervix wassubmitted, please contact the testing laboratoryfor alternative testing options.For additional information, please refer tohttp://education.ColdSpark/faq/OOS582k2(This link if provided for information/educational purposes only.)THIS TEST WAS PERFORMED AT:[facility] [address] [address]PGRLFLOY WOODRUFF MD HPV mRNA E6/E7 [facility] HPV 16 RNA [facility] HPV 18/45 RNA [facility] 01/03/2023 12:2 4 PM EDT 01/04/2023 10:15 AM EDT [facility] External Provider LAB CYT OLOGY ORDERABLES Final Result [facility] [address] [place] [address] [phone] * Lipid Panel, Standard (06/29/2022 9:46 AM EST) Pathologist [facility] Cholesterol, Total 156 <200 mg/dL [facility] [place] [facility] HDL Cholesterol 50 > OR = 50 mg/dL [facility] [place] [facility] Triglycerides 74 <150 mg/dL [facility] [place] [facility] LDL Cholesterol 90 mg/dL (calc) [facility] [place] [facility] Comment: Reference range: <100 Desirable range <100 mg/dL for primary prevention; ?? <70 mg/dL for patients with CHD or diabetic patients with > or = 2 CHD risk factors. LDL-C is now calculated using the Javid-Cortes calculation, which is a validated novel method providing better accuracy than the Friedewald equation in the estimation of LDL-C. Javid SS et al. LUPE. 2013;310(19): 9555-0188 (http://Shicon.Infermedica/faq/YSZ787) Chol/HDLC Ratio 3.1 <5.0 (calc) [facility] [place] [facility] Non-HDL Cholesterol 106 <130 mg/dL (calc) [facility] [place] [facility] Comment: For patients with diabetes plus 1 major ASCVD risk factor, treating to a non-HDL-C goal of <100 mg/dL (LDL-C of <70 mg/dL) is considered a therapeutic option. Blood Venous blood specimen / Unknown 06/29/2022 9:46 AM EST 06/29/2022 9:47 AM EST Narrative [facility] - 06/30/2022 2:01 AM EST FASTING:NO FASTING: NO us Nory Anna MD LAB BLOOD ORDERABLES Final Res ult [facility] [address], [place] [address] [facility] [place] [facility] [address] [facility], ([address]) [place] [address] * (ABNORMAL) Hepatitis Panel, General (05/23/2022 10:36 AM EST) Hepatitis A Antibody Total NON-REACT SINDHU NON-REACT SINDHU [facility] [place] [facility] Comment: For additional information, please refer to http://Shicon.ColdSpark/faq/MUV093 (This link is being provided for informational/ educational purposes only.) Hepatitis B Surface Antibody QL REACTIVE( A) NON-REACT SINDHU [facility] [place] [facility] Hepatitis B Surface Ag NON-REACT SINDHU NON-REACT SINDHU [facility] [place] [facility] Hepatitis B Core Antibody Total NON-REACT SINDHU NON-REACT SINDHU [facility] [place] [facility] Hepatitis C Antibody NON-REACT SINDHU NON-REACT SINDHU [facility] [place] [employer] [facility] [employer] Index 0.07 <1.00 [facility] Comment: HCV antibody was non-reactive. There is no laboratory evidence of HCV infection. In most cases, no further action is required. However, if recent HCV exposure is suspected, a test for HCV RNA (test code 13074) is suggested. For additional information please refer to http://Shicon.ColdSpark/faq/SQI81e6 (This link is being provided for informational/ educational purposes only.) 05/23/2022 10:3 6 AM EST 05/23/2022 10:38 AM EST Narrative [facility] - 05/24/2022 8:05 PM EST FASTING:YES COLLECTION KIT GIVEN TO PATIENT. PATIENT ADVISED TO RETURN. FASTING: YES Amy Stapleton [facility] LAB BLOOD ORDERABLES Final Res ult [facility] [address] [facility], [facility], [place] [address] [facility] [place] [facility] [address] [facility], ([address]) [place] [address] * HIV-1/2 Antigen and Antibodies, Fourth Generation, with Reflexes (05/23/2022 10:36 AM EST) HIV Antigen/Antibody, 4th Generation NON-REAC TIVE NON-REAC TIVE [facility] [place] [employer] Comment: HIV-1 antigen and HIV-1/HIV-2 antibodies were not detected. There is no laboratory evidence of HIV infection. PLEASE NOTE: This information has been disclosed to you from records whose confidentiality may be protected by state law. ??If your state requires such protection, then the state law prohibits you from making any further disclosure of the information without the specific written consent of the person to whom it pertains, or as otherwise permitted by law. A general authorization for the release of medical or other information is NOT sufficient for this purpose. ?? For additional information please refer to http://Shicon.ColdSpark/faq/KIK314 (This link is being provided for informational/ educational purposes only.) The performance of this assay has not been clinically validated in patients less than 2 years old. Blood Venous blood specimen / Unknown 05/23/2022 10:36 AM EST 05/23/2022 10:38 AM EST Narrative [facility] - 05/24/2022 8:05 PM EST FASTING:YES COLLECTION KIT GIVEN TO PATIENT. PATIENT ADVISED TO RETURN. FASTING: YES Amy Stapleton [employer] LAB BLOOD ORDERABLES Final Res ult [facility] [address] [facility], [facility], [place] [address] [facility] [address] [facility], ([address]) [place] [address] from Last 3 Months or Most Recently Relevant to Health Maintenance [place] [address] [place] [address] [facility] MEDICAID STAND ADULT Care Teams Metal Furrer Relationship Specialty Start Date End Date Nory Anna MD [address] [place] [phone] PCP - General Family Medicine 01/24/21
--- OUTSIDE RECORDS SUMMARY | 2024-08-12 12:37 | XMS_ITS | Encounter Summary ---
Author Organization [employer] Address [address] [facility] 7t [place] [address] Care Team Providers Care Testing Shaking Shipping Name Role Phone Nory Anna MD Primary Care Provider [phone] Encounter Details Date Type Department Care Team ([facility] st Contact Info) Description 07/01/[address] [facility] MEDICINE [address] [place] [phone] Nory Anna MD [address] [place], [place] [phone] Gastroesophageal reflux disease without esophagitis (Primary Dx) Social History Tobacco Use Types Packs/Day Years [...] Orientation Straight 04/02/2022 10 :20 AM EDT COVID-19 Exposure Response Date Recorded In the last 10 days, have yo u been in contact with someone who was confirmed or suspected to have Coronavirus/COVID-19? No / Unsure 06/29/2022 8:57 AM EST documented as of this encounter Plan of Treatment Not on file documented as of this encounter Visit Diagnoses Diagnosis Gastroesophageal reflux disease without esophagitis- Primary Esophageal reflux documented in this encounter Care Teams Testing Shaking Shipping Relationship Specialty Start Date End Date Nory Anna MD [address] [place] [phone] PCP - General Family Medicine 01/24/21 documented as of this encounter
== END 2024-08-12 12:27 | disposition home or self-care (01) ==
PROVIDERS: PCP Internal Medicine; Visit Provider Physician Assistant
DX: Z13.9 Encounter for screening, unspecified (principal); Z32.02 Encounter for pregnancy test, result negative; R10.2 Pelvic and perineal pain

== ENCOUNTER → 2024-08-12 10:52 | Outpatient (BNVA) | payer OTHER, SELFPAY | PROVIDERS: PCP Internal Medicine; Visit Provider Physician Assistant | DX: R10.2 Pelvic and perineal pain (principal) | CPT/HCPCS: 81003; 81025; 99212 ==

== ENCOUNTER 2025-01-22 13:35 | Outpatient (REF) | payer OTHER, SELFPAY ==
[2025-01-22 15:13] LABS: Resp Syncy Virus RNA Qual PCR NEGATIVE (Negative); SARS COV2 PCR INHOUSE NEGATIVE (Negative)
== END 2025-01-22 13:36 | disposition home or self-care (01) ==
LOC: HO.LAB 13:35
PROVIDERS: PCP Internal Medicine; Visit Provider Internal Medicine
DX: J98.8 Other specified respiratory disorders (principal); Z79.899 Other long term (current) drug therapy; K21.9 Gastro-esophageal reflux disease without esophagitis; J30.9 Allergic rhinitis, unspecified; R73.01 Impaired fasting glucose; K76.0 Fatty (change of) liver, not elsewhere classified; K59.00 Constipation, unspecified; E55.9 Vitamin D deficiency, unspecified; E66.01 Morbid (severe) obesity due to excess calories; F17.200 Nicotine dependence, unspecified, uncomplicated; Z68.41 Body mass index [BMI] 40.0-44.9, adult
CPT/HCPCS: 87637; 96127; 99212

== ENCOUNTER 2025-01-22 13:35 | Outpatient (AMB) | payer OTHER, SELFPAY ==
--- OUTSIDE RECORDS SUMMARY | 2025-01-22 13:38 | XMS_ITS | Clinical Summary ---
Author Organization [facility] Address [address] [place] [address] Care Team Providers Care Design And Sales Consultant Name Role Phone Unavailable Primary Care Provider [...] Cervical Cancer Screening: P ap Smear 2007 HIV Screening 06/27/2023 Hepatitis C Screening 06/27/2023 Social Influencers of Health Screening 06/27/2023 COVID-19 Vaccine (1 - 2023-2 5 season) 2024 Depression Screening 06/03/2024 Influenza Vaccine (#1) 2025 HIB Vaccines Aged Out No longer eligi [...] age to complete this topic Meningococcal B Vaccine Aged Out No l onger eligible based on patient's age to complete this topic Pneumococcal Vaccine: Pediat rics (0 to 5 Years) and At-Risk Patients (6 to 49 Years) Aged Out No longer eligible b ased on patient's age to complete this topic RSV Immunization Patients Un gwen 20 months Aged Out No longer eligible b ased on patient's age to complete this topic Varicella Vaccines Aged Out No longer eligible based on patient's age to complete this topic
--- OUTSIDE RECORDS SUMMARY | 2025-01-22 13:38 | XMS_ITS | Clinical Summary ---
Author Organization [employer] Address [address] [place] [address] [address] [place] [address] Care Team Providers Care Psychologists Name Role Phone Nory Anna MD Primary Care Provider [phone] Allergies No known active allergies Medications docusate [...] by mouth 2 times daily. 4 Active naproxen (Naprosyn) 375 MG tablet Take 1 tablet by mouth if needed in the morning and at bedtime for pain. Active Active Problems Problem Noted Date Diagnosed [...] of fatty liver disease Call GI at [facility] to make followup appointment, last seen 10/10/22 Umbilical hernia 05/23/2022 Vitamin D deficiency 05/23/2022 Chronic constipation 07/25/2018 Hip pain 07/25/2018 Low back pain radiating to left leg 07/25/2018 Gallstone 05/20/2018 Allergic rhinitis 10/08/2014 Anxiety 01/13/2014 Iron deficiency anemia 11/12/2013 Assessment & Plan (09/28/2022 2:55 PM EDT): Hg 11.8 today Encounters Date Type Department Care Team Description 12/08/2024 Telephone [facility] [address] [place] [address] [phone] Nory nAna MD No Show 12/07/2024 Telephone [facility] [address] [place] [address] [phone] Nory Anna MD Chart prep 12/07/2024 Telephone [facility] [address] [place] [address] [phone] Nory Anna MD 11/30/2024 Patient Outreach [facility] [address] [place] [address] [phone] Nory Anna MD Pre-visit Planning ((Unable to reach for PVP screening, LVM) to be completed in office ) from Last 3 Months Immunizations Immunization Administration Dates Next Due Hep B, adult [...] 74 07/25/2023 9:02 AM EST Temperature 37.7 C (99.8 F) 04/08/2023 3:10 PM EST Respiratory Rate 20 04/08/2023 3:10 PM EST Oxygen Saturation 100% 04/08/2023 3:10 PM EST Inhaled Oxygen Concentration - - Weight 108 kg (237 lb 9.6 oz) 07/08/2023 2:00 PM EST Height 170.2 cm (5' 7 ) 07/08/2023 2:00 PM EST Body Mass Index 37.21 07/08/2023 2:00 PM EST Plan of Treatment Upcoming Encounters Date Type Department Care Team ([facility] st Contact Info) Description 03/25/2025 10:00 AM EDT Office Visit [facility] [address] [place] [address] Leti, Enma [address] [place] [address] Health Maintenance Due Date Last Done Comments Disability Screening 1985 Alcohol/Substance Use Screening 1998 Family Planning (PISQ) 2001 HPV Vaccines (1 - 3-dose series) 2001 Hepatitis A Vaccines (1 of 2 - Risk 2-dose series) 2005 Hepatitis B Vaccines (3 of 3 - 19+ 3-dose series) 02/15/2021 09/14/2020, 08/15/2020 Dental Oral Exam 07/29/2022 01/25/2022 Depression Screening 06/29/2023 06/29/2022, 06/29/2022 Dental Prophylaxis 01/24/2024 07/25/2023, 01/25/2022 COVID-19 Vaccine ( - 2023-2 5 season) 2024 Dental X-Ray: Full Mouth 04/14/2024 04/13/2021 Tobacco Screening 07/25/2024 07/25/2023 Dental X-Ray: Bitewings 07/26/2024 07/25/19 24, 01/25/2022 SDOH Screening 08/14/2024 08/15/2023 Influenza Vaccine (#1) 2025 6, 06/21/2015, 02/03/2013 DTaP/Tdap/Td Vaccines (3 - T d or Tdap) 05/06/2025 05/06/2015, 01/31/2011 Pap Smear 04/18/2026 04/18/2023, 01/03/2023 Cervical Cancer Screening 01/04/2028 HPV/Cotest 01/04/2028 01/03/2023 Zoster Vaccines (1 of 2) 01/08/2036 RSV Patients and Patients Aged 60 years or older (1 - 1-dose 75+ series) 2061 Pneumococcal Vaccine: Pediatrics (0 to 5 Years) and At-Risk Patients (6 to 49) Years Aged Out 11/12/2013 No longer eligible b [...] 16, 18/45 Routine 01/03/2023 12:24 PM EDT HEPATITIS PANEL, GENERAL Routine 05/23/2022 10:36 AM EST Epigastric pain HIV 1/2 ANTIGEN/ANTIBODY, FOURTH GENERATION W/RFL Routine 05/23/2022 10:36 AM EST Epigastric pain from Last 3 Months or Most Recently Relevant to Health Maintenance Results * Pap Smear (04/18/2023 12:03 PM EST) 04/18/2023 12:0 3 PM EST 04/19/2023 8:00 AM EST Narrative [facility] - 05/07/2023 7:56 AM EST ----- ------- Name: Kiran Neil Age/Sex: 38/F : 1985 Unit#: [id number] Attend Dr: Kacie Armenta Re04/18/23 Status: DEP REF Location: [facility] Disch: ----- ------- SPEC : [id number] RECD: 04/19/23 STATUS: RACHEAL RUANO NUM: [id number] TATIANNA: 04/18/23-12[address] [facility] DR: Kacie Armenta ENTERED: 04/19/23 SP TYPE: Pap Smr OTHR DR: Margaret Patterson MD ORDERED: Pap Smear Interpretation Satisfactory for evaluation. Mild inflammation. Abundant mucus. Negative for intraepithelial lesion or malignancy. HPV mRNA E6/E7: NOT DETECTED This assay detects E6/E7 viral messenger RNA (mRNA) from 14 high-risk HPV types (16, 18, 31, 33, 35, 39, 45, 51, 52, 56, 58, 59, 66, 68) HPV testing performed by [facility], [place], [place]. See reference laboratory portion of the EMR for entire report. Clinical Information LMP: 04/07/23 Previous PAP test: 01/03/23, Unsatisfactory Material Received ThinPrep-Cervical Copies To: Kacie Armenta[address] Walters [address] [place] [phone] Margaret Patterson MD [address] [place] [phone] ----- ------- Signed (signature on file) CLARIBEL Sanchez ([facility]) 05/07/23 0756 ----- ------- END OF REPORT us Generic External Data Provider LAB CYTOLOGY HOLLY BENITEZ Final Result [facility] [address] [place] [phone] * HPV mRNA E6/E7 w/Reflex to HPV Genotypes 16, 18/45 (01/03/2023 12:24 PM EDT) HPV nRNA E6/E7 Not Detected Not Detected [facility] Comment:Methodology: Transcr iption-Mediated AmplificationThis assay detects E6/E7 viral messenger RNA (mRNA) from 14high-risk HPV types (16,18,31,33,35,39,45,51,52,56,58,59,66,68).Cervical sources are required for HPV testing.If a vaginal source from a patient who has had atotal hysterectomy with removal of cervix wassubmitted, please contact the testing laboratoryfor alternative testing options.For additional information, please refer tohttp://education.[facility]/faq/OHQ798a7(This link if provided for information/educational purposes only.)THIS TEST WAS PERFORMED AT:[facility] [place] [phone] WOODRUFF MD HPV mRNA E6/E7 [facility] HPV 16 RNA [facility] HPV 18/45 RNA [facility] 01/03/2023 12:2 4 PM EDT 01/04/2023 10:15 AM EDT [facility] External Provider LAB CYT OLOGY ORDERABLES Final Result [facility] [address] [place] [address] [phone] * (ABNORMAL) Hepatitis Panel, General (05/23/2022 10:36 AM EST) Hepatitis A Antibody Total NON-REACT SINDHU NON-REACT SINDHU [facility] Comment: For additional information, please refer to http://[place].[facility]/faq/UNX852 (This link is being provided for informational/ educational purposes only.) Hepatitis B Surface Antibody QL REACTIVE( A) NON-REACT SINDHU [facility] Hepatitis B Surface Ag NON-REACT SINDHU NON-REACT SINDHU [facility] Hepatitis B Core Antibody Total NON-REACT SINDHU NON-REACT SINDHU [facility] Hepatitis C Antibody NON-REACT SINDHU NON-REACT SINDHU [facility] Index 0.07 <1.00 [facility] Comment: HCV antibody was non-reactive. There is no laboratory evidence of HCV infection. In most cases, no further action is required. However, if recent HCV exposure is suspected, a test for HCV RNA (test code 75455) is suggested. For additional information please refer to http://[place].[facility]/faq/FGB14l9 (This link is being provided for informational/ educational purposes only.) 05/23/2022 10:3 6 AM EST 05/23/2022 10:38 AM EST Narrative [facility] - 05/24/2022 8:05 PM EST FASTING:YES COLLECTION KIT GIVEN TO PATIENT. PATIENT ADVISED TO RETURN. FASTING: YES Amy Pieter [facility] LAB BLOOD ORDERABLES Final Res ult Performing Organization Address City/[facility]/ZIP Co de Phone Number [facility] [address] [place] [address], [place] [address] [facility] [address] [place] [address], ([address]) [place] [address] * HIV-1/2 Antigen and Antibodies, Fourth Generation, with Reflexes (05/23/2022 10:36 AM EST) [facility] HIV Antigen/Antibody, 4th Generation NON-REAC TIVE NON-REAC TIVE [facility] Comment: HIV-1 antigen and HIV-1/HIV-2 antibodies were not detected. There is no laboratory evidence of HIV infection. PLEASE NOTE: This information has been disclosed to you from records whose confidentiality may be protected by state law. If your state requires such protection, then the state law prohibits you from making any further disclosure of the information without the specific written consent of the person to whom it pertains, or as otherwise permitted by law. A general authorization for the release of medical or other information is NOT sufficient for this purpose. For additional information please refer to http://education.[place]/faq/ACQ015 (This link is being provided for informational/ educational purposes only.) The performance of this assay has not been clinically validated in patients less than 2 years old. Blood Venous blood specimen / Unknown 05/23/2022 10:36 AM EST 05/23/2022 10:38 AM EST Narrative [facility] - 05/24/2022 8:05 PM EST FASTING:YES COLLECTION KIT GIVEN TO PATIENT. PATIENT ADVISED TO RETURN. FASTING: YES Amy Makkaitlin [facility] LAB BLOOD ORDERABLES Final Res ult Performing Organization Address [facility]/ZIP Co de Phone Number [address], [place] [address] [facility] [address], ([address]) [place] [address] from Last 3 Months or Most Recently Relevant to Health Maintenance Insurance [facility] [place] ADULT Care Teams Psychologists Relationship Specialty Start Date End Date Nory Anna MD [address] [place] [address] [place] [id number] PCP - General Family Medicine 01/24/21
[2025-01-22 13:39] VITALS: BP 110/82; PULSE 102; O2SAT 98; BMI 40.4
--- NOTE | 2025-01-22 13:39 | A.OFFPC_ITS ---
Vital Signs 01/22/25 13:39 Height 5 ft 7 in Weight 258 lb 4 oz BMI 40.4 BP 110/82 Blood Pressure Location Lt brachial Position Sitting Pulse 102 H Pulse Source Pulse Oximeter Pulse Oximetry (%) 98 Oxygen Delivery Method Room Air Intake Visit Reasons: 6 month f/u PHQ-9 needed. [employer] Impaired Required: No Accompanied by: Self / Same As Patient Allergies No Known Allergies Allergy (Verified 01/22/25 14:01) Medication List - Last Reconciled 01/22/25 by Kurt Dumont MD cholecalciferol (vitamin D3) 25 mcg PO DAILY 90 days docusate sodium 100 mg PO DAILY PRN 90 days fluticasone propionate 50 mcg/actuation 2 sprays intranasal .QD hydroxyzine pamoate 50 mg (2 x 25 mg) PO BID PRN 30 days ketorolac 10 mg PO Q8H 5 days loratadine 10 mg PO DAILY PRN 90 days meclizine 25 mg PO DAILY PRN naproxen 375 mg PO BID PRN omeprazole 20 mg PO BID 90 days polyethylene glycol 3350 (ClearLax) 17 grams PO DAILY 30 days sucralfate 1 g PO QIDACHS 21 days Tobacco use date assessed: 01/22/25 Dental Screening Dental Screen Date: 01/22/25 Did you have a dental visit in the last 12 months?: Yes Did you have a dental problem in the last 6 months where you did not have access to dental care?: No Was dental information given to patient?: Patient has dentist HPI 6 month f/u PHQ-9 needed. HPI Details Patient comes in today for her follow up visit - she has not been back since her last annual physical examination on 03/02/2024 States that she has been experiencing symptoms of increased cough and congestion for about 5 days now She reports (+) mild sore throat but denies any fever States that there are a few other family members in her household with similar symptoms over the past couple of weeks She denies any headaches or dizziness Denies any chest pains, no increased SOB No nausea/vomiting, no abdominal pain No change in bowel habits noted [facility] Medical History (Updated 01/24/25 @ 19:24 by Kurt Dumont MD) Morbid obesity with BMI of 40.0-44.9, adult Impaired fasting glucose Obesity (BMI 30-39.9) Smoker Migraine Vitamin D deficiency Nonalcoholic hepatosteatosis Constipation Allergic rhinitis GERD (gastroesophageal reflux disease) Surgical History Hx of tubal ligation Hx of cholecystectomy Social History Household Members: Family Household Members Other:: kids-3 Housing: House Alcohol intake: current Alcohol intake frequency: holidays/special occasions only Patient Tobacco Use Status: Current someday Tobacco user e-Cigarette/Vaping Use: Never Used service: No Current occupational status: employed Current occupational exposures/hazards: No Cognitive needs: No Hearing needs: No Vision needs: No Female Reproductive History Menstrual Age of Menarche: 13 Questionnaire PHQ-9 Over the last 2 weeks, how often have you been bothered by any of the following problems? 1. Little interest or pleasure in doing things: not at all 2. Feeling down, depressed, or hopeless: several days 3. Trouble falling or staying asleep, or sleeping too much: several days 4. Feeling tired or having little energy: several days 5. Poor appetite or overeating: not at all 6. Feeling bad about yourself - or that you are a failure or have let yourself or your family down: not at all 7. Trouble concentrating on things, such as reading the newspaper or watching television: not at all 8. Moving or speaking so slowly that other people could have noticed. Or the opposite - being so fidgety or restless that you have been moving around a lot more than usual: not at all 9. Thoughts that you would be better off or of hurting yourself in some way: not at all Total score: 3 Depression Screening Interpretation: Negative Depression Screening Done: Yes 67514 - PHQ-9 Billing: Yes Source: Developed by Drs. Casimiro Arroyo, Mraika Rivas, Adrián Connell and colleagues, with an educational kong from [employer]. Thrive Questionnaire Date Thrive assessed: 01/22/25 I am a: Patient What is your living situation today?: I have a steady place to live Within the past 12 months, did the food you bought not last and you didn't have the money to get more?: Never true Within the past 12 months, did you worry whether your food would run out before you got money to buy more?: Never true Do you have trouble paying for medicines?: No Do you have trouble getting transportation to medical appointments?: No Do you have trouble paying your heating and electricity bill?: No Do you have trouble taking care of your child, family member or friend?: No Do you have trouble with day-to-day activities such as bathing, preparing meals, shopping, managing finances, etc.?: No Are you currently unemployed and looking for a job?: I choose not to answer this question Are you interested in more education?: No Please select the resources that you would like help with: None Currently or been in a relationship where the following occur: No concerns reported THRIVE Score: 0 AUDIT C Alcohol Use Questionnaire (AUDIT-C) 1. How often do you have a drink containing alcohol?: 2-4 times a month 2. How many drinks containing alcohol do you have on a typical day when you are drinking?: 5 or 6 3. How often do you have six or more drinks on one occasion?: Monthly Total Score: 6 Score Reviewed/Action Taken: Yes JOHN-7 AMB Questionnaire JOHN-7 Date JOHN - 7 assessed: 01/22/25 Feeling nervous, anxious, or on edge: 0 = Not at all Not being able to stop or control worryin = Not at all Worrying too much about different things: 0 = Not at all Trouble relaxin = Not at all Being so restless that it is hard to sit still: 0 = Not at all Becoming easily annoyed or irritable: 0 = Not at all Feeling afraid as if something awful might happen: 0 = Not at all Total JOHN-7 score (0-4 normal; 5-9 mild; 10-14 moderate; 15-21 severe): 0 Source: Developed by Drs. Casimiro Arroyo, Marika Rivas, Adrián Connell and colleagues, with an educational kong from [employer]. Review of Systems Const Denies chills, Reports fatigue, Denies fever(s) and Denies headache(s) ENT Denies dysphagia, Denies dizziness, Denies otalgia, Denies headache(s), Denies neck pain, Denies odynophagia and Reports sore throat (mild) Card Denies chest pain, Denies palpitations and Denies dyspnea Resp Reports chest congestion, Reports cough, Denies dyspnea and Denies wheezing GI Denies abdominal pain, Denies constipation, Denies dysphagia, Denies heartburn, Denies diarrhea, Denies nausea, Denies odynophagia and Denies vomiting Denies difficulty voiding, Denies nocturia, Denies dysuria and Denies urinary urgency Musc Denies back pain and Denies neck pain Skin/Breast Denies rash Neuro Denies dizziness and Denies headache(s) Endo Reports fatigue and Denies palpitations Aller/Immun Denies wheezing Physical exam (Primary Care) Vital Signs: Last Vital Signs Pulse 102 H 01/22/25 13:39 BP 110/82 01/22/25 13:39 Pulse Ox 98 01/22/25 13:39 Oxygen Delivery Method Room Air 01/22/25 13:39 BMI result Body Mass Index 40.4 Tobacco/Smoking Status: Tobacco use Status Tobacco use date assessed 01/22/25 01/22/25 13:43 Patient Tobacco Use Status Current someday Tobacco 01/22/25 13:43 e-Cigarette/Vaping Use Never Used 01/22/25 13:43 PHQ-9: PHQ-9 Score PHQ-9: Total score 3 01/22/25 14:02 Depression Screening Interpretation: Negative Thrive Assessment: Date of Thrive Assessment Date Thrive assessed 01/22/25 01/22/25 13:43 Currently or been in a relationship where the following occur: No concerns reported Const General: no acute distress and alert HENMT Ears: TM's normal bilaterally and EAC's normal Throat: Yes posterior oropharynx normal and Yes tonsils normal (no TP congestion) Neck Neck: Yes supple and No lymphadenopathy Thyroid: Thyroid normal Resp Auscultation: clear to auscultation bilaterally, no rales and no wheezes Cardio Rate: regular rate Rhythm: regular rhythm Heart sounds: no murmurs GI Palpation (GI): Soft to palpation and nontender Auscultation: normal bowel sounds General: Yes no CVA tenderness Back/Spine/Pelvis Back: no CVA tenderness Thoracic/Lumbar Spine: thoracic and lumbar spine normal to inspection Skin Rashes: no rashes Extrem General: Yes no clubbing, cyanosis or edema Coding Level of Care Code Est Pt Level 4 (52170) Diagnoses Respiratory tract infection J98.8 Gastroesophageal reflux disease without esophagitis K21.9 Esophagitis presence: without esophagitis Allergic rhinitis, unspecified seasonality, unspecified trigger J30.9 Allergic rhinitis trigger: unspecified Allergic rhinitis seasonality: unspecified Impaired fasting glucose R73.01 Nonalcoholic hepatosteatosis K76.0 Constipation, unspecified constipation type K59.00 Constipation type: unspecified constipation type Vitamin D deficiency E55.9 Smoker F17.200 Morbid obesity with BMI of 40.0-44.9, adult E66.01; Z68.41 Additional Codes PHQ-9 - 13252 - PHQ-9 Billing: Yes ([id number]) Assessment & Plan Assessment & Plan (1) Respiratory tract infection: Code(s): J98.8 - Other specified respiratory disorders Category: Medical Plan: Will send patient to the lab now to get tested for viral panel, including influenza, RSV and COVID Have advised patient that we will send in the appropriate prescription for her, if needed, once her test results come out (2) GERD (gastroesophageal reflux disease): Code(s): K21.9 - Gastro-esophageal reflux disease without esophagitis Category: Medical Qualifiers: Esophagitis presence: without esophagitis Qualified Code(s): K21.9 - Gastro-esophageal reflux disease without esophagitis Plan: Reinforced dietary restrictions Continue omeprazole 20 mg BID (3) Allergic rhinitis: Code(s): J30.9 - Allergic rhinitis, unspecified Category: Medical Qualifiers: Allergic rhinitis trigger: unspecified Allergic rhinitis seasonality: unspecified Qualified Code(s): J30.9 - Allergic rhinitis, unspecified Plan: Continue loratadine 10 mg QD PRN and fluticasone 50 mcg nasal spray QD PRN (4) Impaired fasting glucose: Code(s): R73.01 - Impaired fasting glucose Category: Medical Plan: Reinforced low-calorie/low carb diet Will recheck her FBS and HgbA1c in a few months for follow-up (5) Nonalcoholic hepatosteatosis: Code(s): K76.0 - Fatty (change of) liver, not elsewhere classified Category: Medical Plan: Patient's LFTs were normal when they were most recently checked in February 2024 Have reminded patient that losing weight the most effective way of getting this controlled Will continue to monitor her LFTs regularly (6) Constipation: Code(s): K59.00 - Constipation, unspecified Category: Medical Qualifiers: Constipation type: unspecified constipation type Qualified Code(s): K59.00 - Constipation, unspecified Plan: Reinforced increase oral fluids and dietary fiber intake Continue MiraLax 17 gm QD and docusate 100 mg QD PRN (7) Vitamin D deficiency: Code(s): E55.9 - Vitamin D deficiency, unspecified Category: Medical Plan: Continue Vitamin D3 1000 units QD Will recheck her Vitamin D level in a few months for follow up (8) Smoker: Code(s): F17.200 - Nicotine dependence, unspecified, uncomplicated Category: Social Hx Plan: Patient is counseled again on complete smoking cessation (9) Morbid obesity with BMI of 40.0-44.9, adult: Code(s): E66.01 - Morbid (severe) obesity due to excess calories; Z68.41 - Body mass index [BMI] 40.0-44.9, adult Category: Medical Plan: Reinforced diet/exercise as tolerated/lose weight Plan To return in June 2025 for her annual physical examination Patient is reminded to try and get her labs done about 1-2 weeks before her physical examination in June 2025 Orders: Orders SARS-CoV2/FLU/RSV 01/22/25 J98.8 - Other specified respiratory disorders Complete Blood Count Auto Diff 06/12/25 D64.9 - Anemia, unspecified, Z00.00 - Encounter for general adult medical examination without abnormal findings TSH reflex Free T4 06/12/25 E78.00 - Pure hypercholesterolemia, unspecified, Z00.00 - Encounter for general adult medical examination without abnormal findings Comprehensive [place]. Panel Fast 06/12/25 E78.00 - Pure hypercholesterolemia, unspecified, Z00.00 - Encounter for general adult medical examination without abnormal findings Lipid Panel 06/12/25 E78.00 - Pure hypercholesterolemia, unspecified, Z00.00 - Encounter for general adult medical examination without abnormal findings UA CC w/rflx Micro + Cult 06/12/25 R30.0 - Dysuria, Z00.00 - Encounter for general adult medical examination without abnormal findings Vitamin D 25-OH Total 06/12/25 E55.9 - Vitamin D deficiency, unspecified, Z00.00 - Encounter for general adult medical examination without abnormal findings Hemoglobin A1c 06/12/25 R73.01 - Impaired fasting glucose, Z00.00 - Encounter for general adult medical examination without abnormal findings
== END 2025-01-22 14:07 | disposition home or self-care (01) ==
PROVIDERS: PCP Internal Medicine; Visit Provider Internal Medicine
DX: J98.8 Other specified respiratory disorders (principal); K21.9 Gastro-esophageal reflux disease without esophagitis; E66.01 Morbid (severe) obesity due to excess calories; Z68.41 Body mass index [BMI] 40.0-44.9, adult; J30.9 Allergic rhinitis, unspecified; R73.01 Impaired fasting glucose; K76.0 Fatty (change of) liver, not elsewhere classified; K59.00 Constipation, unspecified; E55.9 Vitamin D deficiency, unspecified; F17.200 Nicotine dependence, unspecified, uncomplicated